=== PATIENT | female | born 1995 | race Caucasian/White ===

== ENCOUNTER → 2017-09-13 08:56 | Outpatient (CLI) | payer OTHER, SELFPAY ==
--- NOTE | 2017-09-13 09:05 | RAD_ITS ---
STUDY: X-RAY - BILATERAL RIBS WITH CHEST REASON FOR EXAM: Female, 21 years old. Back pain. TECHNIQUE - RIBS: 8 view(s) of the ribs. TECHNIQUE - CHEST: Single frontal view of the chest. COMPARISON: None. FINDINGS - RIBS : Normal visualized ribs without a demonstrated fracture. FINDINGS - CHEST: The lungs are clear and expanded. There is no demonstrated pleural abnormality. Normal size heart. Normal mediastinum and elkin. Normal visualized pulmonary arteries. Normal visualized aortic arch and descending thoracic aorta. Normal visualized thoracic spine. Normal visualized ribs, clavicles, and shoulders. There is no demonstrated abnormality of the visualized soft tissue structures of the upper abdomen. RAD/Ribs Lele Min 4V w/PA Chest IMPRESSION: RIBS: Normal x-ray examination of the bilateral ribs. CHEST: Normal x-ray examination of the chest. Electronically Signed: Gómez Garcia MD at 20:56 EDT , Service support ,
== END ==
PROVIDERS: Family Provider Pediatrics; PCP Pediatrics; Visit Provider Orthopaedic Surgery
DX: R07.9 Chest pain, unspecified (principal)
CPT/HCPCS: 71111

== ENCOUNTER → 2017-10-02 12:47 | Outpatient (CLI) | payer OTHER, SELFPAY ==
--- NOTE | 2017-10-02 12:48 | CT_ITS ---
STUDY: CT CHEST WITH CONTRAST REASON FOR EXAM: Female, 21 years old. 6 month history of right sided sternoclavicular pain. RADIATION DOSAGE (If Supplied By Facility): CTDIvol = ( 9.77 ) mGy, DLP = ( 379.22 ) mGycm TECHNIQUE: Transaxial imaging was performed following intravenous administration of 100 ml of Isovue 300 contrast material. Multiplanar coronal and sagittal images were reformatted. Individualized dose optimization techniques were used for this CT. COMPARISON: None. FINDINGS: The lungs are normal. There is no demonstrated pleural abnormality. Normal heart and pericardium. Normal mediastinum. 1.5 cm left hilar lymph node. This is within normal limits. Normal enhanced pulmonary arteries. Normal aorta arch and descending thoracic aorta. Normal osseous structures. There is no demonstrated abnormality of the visualized upper abdomen. CT/Chest WITH Contrast IMPRESSION: Normal enhanced CT Chest examination. Electronically Signed: Paul Jones MD at 13:54 EDT Tel [phone], Service support ,
== END ==
PROVIDERS: Family Provider Pediatrics; PCP Pediatrics; Visit Provider Orthopaedic Surgery
DX: R07.9 Chest pain, unspecified (principal)
CPT/HCPCS: 71260; Q9967

== ENCOUNTER → 2018-03-09 13:12 | Outpatient (CLI) | payer OTHER, SELFPAY ==
--- NOTE | 2018-03-09 13:16 | US_ITS ---
STUDY: ULTRASOUND TRANSVAGINAL CLINICAL: Female, 22 years old. In left lower quadrant TECHNIQUE: Transvaginal COMPARISON: None. FINDINGS: Normal uterine size measuring 7.5 x 4.6 x 3.4 cm in maximal craniocaudal dimension. There are no myometrial masses. The IUD is within the lower uterine segment to the cervix. Normal endometrial thickness measuring 7 mm. There are no endometrial masses, and there is no fluid in the endometrial cavity. A nabothian cyst at the cervix measuring 1.4 x 0.8 x 0.8. Normal right ovary, measuring 3.9 x 2.8 x 2.2 cm. There is a hypoechoic 1.6 x 1.3 cm follicle in the right ovary. There is no visualized portion. Normal left ovary, measuring 3.3 x 2.5 x 2.0 cm. There are multiple follicles without a dominant cyst. There is a small amount of free fluid. Polycystic ovary disease: No. US/Transvaginal Non- IMPRESSION: The IUD is in the lower uterine segment approaching the cervix. This should be repositioned or removed. Small amount of free fluid. Mildly complex right ovarian follicle could consider follow-up ultrasound in one to 2 measures cycles. Electronically Signed: Lupe Sanchez MD at 17:38 EDT Tel , Service support ,
--- NOTE | 2018-03-09 13:16 | US_ITS ---
STUDY: ULTRASOUND TRANSVAGINAL CLINICAL: Female, 22 years old. In left lower quadrant TECHNIQUE: Transvaginal COMPARISON: None. FINDINGS: Normal uterine size measuring 7.5 x 4.6 x 3.4 cm in maximal craniocaudal dimension. There are no myometrial masses. The IUD is within the lower uterine segment to the cervix. Normal endometrial thickness measuring 7 mm. There are no endometrial masses, and there is no fluid in the endometrial cavity. A nabothian cyst at the cervix measuring 1.4 x 0.8 x 0.8. Normal right ovary, measuring 3.9 x 2.8 x 2.2 cm. There is a hypoechoic 1.6 x 1.3 cm follicle in the right ovary. There is no visualized portion. Normal left ovary, measuring 3.3 x 2.5 x 2.0 cm. There are multiple follicles without a dominant cyst. There is a small amount of free fluid. Polycystic ovary disease: No. US/Pelvic (Non ) IMPRESSION: The IUD is in the lower uterine segment approaching the cervix. This should be repositioned or removed. Small amount of free fluid. Mildly complex right ovarian follicle could consider follow-up ultrasound in one to 2 measures cycles. Electronically Signed: Lupe Sanchez MD at 17:38 EDT Tel , Service support ,
== END ==
PROVIDERS: Family Provider Pediatrics; PCP Pediatrics; Visit Provider Nurse Practitioner Women's Health
DX: R10.2 Pelvic and perineal pain (principal)
CPT/HCPCS: 76830; 76856; 93976

== ENCOUNTER → 2019-04-08 11:23 | Outpatient (CLI) | payer OTHER, SELFPAY ==
[2019-04-08 08:21] VITALS: BMI 18.8
[2019-04-08 15:39] LABS: Chlamydia Trachomatis by PCR Negative (Negative); Neisserai gonorrhoeae by PCR Negative (Negative); Probe Check PASS; Sample Adequacy Control PASS; Specimen Processing Control PASS
[2019-04-10 18:13] LABS: HPV Reflexed? NOT INDICATED
== END ==
PROVIDERS: Family Provider Pediatrics; PCP Pediatrics; Referring Provider Nurse Practitioner Women's Health; Visit Provider Nurse Practitioner Women's Health
DX: Z11.3 Encounter for screening for infections with a predominantly sexual mode of transmission (principal); Z12.4 Encounter for screening for malignant neoplasm of cervix
CPT/HCPCS: 87491; 87591; 88175; G0145

== ENCOUNTER → 2020-02-26 07:52 | Outpatient (CLI) | payer OTHER, SELFPAY ==
[2020-02-21 09:03] VITALS: BMI 18.8
--- NOTE | 2020-02-26 07:53 | US_ITS ---
STUDY: ULTRASOUND BREAST - RIGHT REASON FOR EXAM: Female, 24 years old. Palpable lump in the right breast. TECHNIQUE: Axial and longitudinal images of the RIGHT breast were performed with a high resolution ultrasound transducer. # OF IMAGES: 58 COMPARISON: None. FINDINGS: RIGHT Breast: The upper outer region of the right breast was examined by ultrasound. No sonographic abnormality is seen. IMPRESSION: No sonographic abnormality is seen in the upper outer quadrant of the right breast. ASSESSMENT CATEGORY: BIRADS Category 1: Negative. A letter regarding these results will be sent to the patient by the facility within 30 days. Electronically Signed: Paul Jones, at 10:47 EDT , Service support , STUDY: ULTRASOUND BREAST - LEFT REASON FOR EXAM: Female, 24 years old. Palpable lump left breast. TECHNIQUE: Axial and longitudinal images of the LEFT breast were performed with a high resolution ultrasound transducer. # OF IMAGES: 58 COMPARISON: None. FINDINGS: LEFT Breast: The lower outer quadrant of the left breast was examined by ultrasound. No sonographic abnormality is seen. US/Breast Limited Unilateral IMPRESSION: No sonographic abnormality is seen in the lower outer quadrant of the left breast. ASSESSMENT CATEGORY: BIRADS Category 1: Negative. A letter regarding these results will be sent to the patient by the facility within 30 days. Electronically Signed: Paul Jones, at 10:47 EDT , Service support ,
== END ==
PROVIDERS: PCP Pediatrics; Referring Provider Obstetrics & Gynecology; Visit Provider Obstetrics & Gynecology
DX: N63.0 Unspecified lump in unspecified breast (principal)
CPT/HCPCS: 76642

== ENCOUNTER → 2020-11-12 13:53 | Outpatient (CLI) | payer OTHER, SELFPAY ==
[2020-11-05 14:45] VITALS: BMI 18.8
--- NOTE | 2020-11-12 13:56 | US_ITS ---
STUDY: ULTRASOUND OF THE FEMALE PELVIS - COMPLETE REASON FOR EXAM: Female, 24 years old. ov cyst LMP: 10/25/2020 TECHNIQUE: Transabdominal and Transvaginal TECHNICAL QUALITY: Adequate. COMPARISON: None. FINDINGS: The uterus is anteverted and is in a midline position. The uterus measures 8.0 x 4.7 x 3.7 cm. Normal uterine cervix. The endometrium measures 2 mm in thickness, and is hyperechoic. There is no demonstrated endometrial mass. There is no demonstrated myometrial mass. I.U.D. - The patient does not have an I.U.D. The right ovary is visualized. The right ovary measures 3.4 x 4.0 x 2.1 cm. There is no right ovarian cyst or ovarian mass. There is no visualized right adnexal mass or complex lesion. There is normal arterial and normal venous vascularity. The left ovary is visualized. The left ovary measures 3.3 x 2.9 x 2.1 cm. There is no left ovarian cyst or ovarian mass. There is no visualized left adnexal mass or complex lesion. There is normal arterial and normal venous vascularity. There is no fluid in the cul-de-sac. The pre void volume of the bladder was ml. The post void volume of the bladder was ml. Polycystic ovary disease: No. US/Pelvic (Non ) IMPRESSION: Normal female pelvis. Electronically Signed: Ehsan Hood MD at 7:50 EDT Tel , Service support ,
--- NOTE | 2020-11-12 13:56 | US_ITS ---
STUDY: ULTRASOUND OF THE FEMALE PELVIS - COMPLETE REASON FOR EXAM: Female, 24 years old. ov cyst LMP: 10/25/2020 TECHNIQUE: Transabdominal and Transvaginal TECHNICAL QUALITY: Adequate. COMPARISON: None. FINDINGS: The uterus is anteverted and is in a midline position. The uterus measures 8.0 x 4.7 x 3.7 cm. Normal uterine cervix. The endometrium measures 2 mm in thickness, and is hyperechoic. There is no demonstrated endometrial mass. There is no demonstrated myometrial mass. I.U.D. - The patient does not have an I.U.D. The right ovary is visualized. The right ovary measures 3.4 x 4.0 x 2.1 cm. There is no right ovarian cyst or ovarian mass. There is no visualized right adnexal mass or complex lesion. There is normal arterial and normal venous vascularity. The left ovary is visualized. The left ovary measures 3.3 x 2.9 x 2.1 cm. There is no left ovarian cyst or ovarian mass. There is no visualized left adnexal mass or complex lesion. There is normal arterial and normal venous vascularity. There is no fluid in the cul-de-sac. The pre void volume of the bladder was ml. The post void volume of the bladder was ml. Polycystic ovary disease: No. US/Transvaginal Non- IMPRESSION: Normal female pelvis. Electronically Signed: Ehsan Hood MD at 7:50 EDT Tel , Service support ,
== END ==
PROVIDERS: PCP Internal Medicine; Referring Provider Nurse Practitioner Women's Health; Visit Provider Nurse Practitioner Women's Health
DX: N83.202 Unspecified ovarian cyst, left side (principal)
CPT/HCPCS: 76830; 76856

== ENCOUNTER → 2022-09-23 | Outpatient (CLI) | payer OTHER, SELFPAY ==
[2022-09-30 20:12] LABS: HPV Reflexed? NOT INDICATED
== END | disposition home or self-care (01) ==
LOC: LABSPEC 16:39
PROVIDERS: PCP Internal Medicine; Referring Provider Advanced Practice Midwife; Visit Provider Advanced Practice Midwife
DX: Z12.4 Encounter for screening for malignant neoplasm of cervix (principal)
CPT/HCPCS: 88175; G0145

== ENCOUNTER 2023-03-10 15:54 | Emergency (ER) | payer OTHER, SELFPAY ==
[2023-03-10 15:55] VITALS: BP 110/73; PULSE 99; RESP 18; TEMP 36.6; O2SAT 100; BMI 22.1
--- NOTE | 2023-03-10 16:41 | EDS_ITS ---
HPI HPI - Female History of Present Illness Chief Complaint: Vag Bleeding Informant: patient Associated Symptoms P: 0 Narrative Narrative: Patient about 8 weeks, has not had an ultrasound yet but started spotting today, she had some generalized pelvic cramping this morning that is gone, was referred here for evaluation. No other symptoms recently. No problems urinating. No syncope or feeling abnormal at this time. PFSH PFSH Medical History Anxiety Asthma Bilateral headaches GERD (gastroesophageal reflux disease) History of fracture of patella Home Medications NK 09/23/22 [History Last Taken Unknown] Allergy/AdvReac Type Severity Reaction Status Date / Time amoxicillin Allergy Mild Vomiting Verified 03/10/23 15:55 bupropion [From Wellbutrin] Allergy Hives Verified 03/10/23 15:55 Family History Other High blood cholesterol Hypertension Myocardial infarction Surgical History bilateral knee surgery History of wisdom tooth extraction, class II edentulism Social History household members: spouse current occupational status: student 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 Smoking Status: Never smoker alcohol intake: current details: occasionally substance use type: does not use caffeine: Yes what type of physical activity do you participate in: none seatbelt use: always do you feel safe at home: Yes additional social history: - Marco A SANDHU EDSON ED Constitutional Constitutional ED: Denies chills or fever(s) Eyes Eyes: Denies change in vision or diplopia ENT ENT ED: Denies rhinorrhea or sore throat Cardiovascular Cardiovascular: Denies chest pain or palpitations Respiratory/Chest Respiratory/Chest: Denies cough or dyspnea Gastrointestinal Gastrointestinal: Reports abdominal pain; Denies diarrhea, nausea or vomiting Genitourinary Genitourinary ED: Reports as per HPI and vaginal bleeding; Denies dysuria or hematuria Musculoskeletal Musculoskeletal: Denies back pain or neck pain Integumentary Denies abscess or rash Neurologic Neurologic: Denies headache(s), paresthesias or weakness Psychiatric Psychiatric: Denies anxiety or suicidal thoughts EXAM Physical Exam Const Vital Signs: 03/10/23 15:55 Temperature 97.9 F Temperature Source Temporal Pulse Rate 99 Respiratory Rate 18 Blood Pressure 110/73 Blood Pressure Mean 85 Pulse Ox 100 Oxygen Delivery Method Room Air Positive well nourished and well developed Constitutional Narrative: Well-appearing in no distress, pleasant General Appearance ED: well developed and NAD HEENT Reports moist mucous membranes normocephalic and atraumatic Eyes PERRL and EOMs intact bilaterally Neck full ROM and supple Resp normal respiratory effort and clear to auscultation bilaterally Cardio regular rate, regular rhythm and no murmurs Rate: Negative for tachycardic GI non-tender and non-distended Auscultation: normoactive bowel sounds Palpation: soft Speculum Exam - Vagina: vaginal bleeding Back/Spine no CVA tenderness General Back: other FROM Extremity normal to inspection General Extremety ED: Negative for edema, pulses abnormal or tenderness General Extremity: Negative for edema or pulses abnormal Neuro oriented x3, CN's II-XII intact bilaterally and no sensory deficits noted Sensorium / Orientation: awake and alert Motor Exam: strength 5/5 throughout Skin no rashes or lesions noted and no wounds MDM MDM MDM Narrative Medical decision making narrative: Formed a bedside ultrasound. Patient has good double decidua sign, there is a small fetus inside of it, and it does have a detectable heartbeat with rate at 161. The patient's is approximately 65. Reassured, her blood type is a positive, urinalysis shows no infection, at this time she will be discharged with instructions for threatened AB and advised to follow-up with her OB at [place]. We discussed reasons to return. Lab Data Attestation: I reviewed the patient's lab results. Labs: Laboratory Results - last 24 hr 03/10/23 16:43 HCG, Quant [id number] H Urine Color Yellow Urine Clarity Sl. Cloudy Urine pH 6.0 Ur Specific [place] 1.025 Urine Protein 15 H Urine Glucose (UA) Normal Urine Ketones 150 A* Urine Occult Blood 10 H Urine Nitrite Negative Urine Bilirubin Negative Urine Urobilinogen 4 H Ur Leukocyte Esterase 25 H Urine RBC 0-5 SEEN Urine WBC 0-5 SEEN Ur Squamous Epith Cells 0-5 SEEN Amorphous Sediment 1+ URATE Urine Bacteria 0 SEEN Urine Mucus RARE Discharge Plan Triage Chief Complaint: Vag Bleeding ED Provider: Giorgi Mendoza Dx/Rx/DC Orders Clinical Impression: , threatened Instructions: ED Possible Miscarriage ... Prescriptions: No Action NK Primary Care Provider: Concha Faulkner Referrals: Concha Faulkner MD [Primary Care Provider] - Concepcion Oleary MD [Med Staff - Active Staff] - As soon as possible Disposition Disposition: Home, Self Care
[2023-03-10 16:49] LABS: Bacteria 0 SEEN /hpf (None Seen)
[2023-03-10 16:52] LABS: Color, Urine Yellow (Yellow); Glucose, Dipstick Normal (Normal); Leukocyte Esterase-Dipstick 25 /ul (Negative); Nitrite-Dipstick Negative (Negative); Occult Blood-Urine 10 /ul (Negative); Protein-Dipstick 15 mg/dl (Negative); Specific Gravity, Urine 1.025 (1.002-1.030); Urine Bilirubin Dipstick Negative (Negative); Urine Clarity Sl. Cloudy (Clear); Urine Urobilinogen 4 mg/dl (Normal)
[2023-03-10 16:56] LABS: Ketone-Dipstick 150 mg/dl (Negative)
[2023-03-10 17:02] LABS: Amorphous Sediment 1+ URATE; Mucous, Urine RARE /hpf (<or=2+); Red Blood Cells-Urine 0-5 SEEN /hpf (0-5); Squamous Epithelial Cells - UA 0-5 SEEN /hpf (5-10); White Blood Cells 0-5 SEEN /hpf (0-5)
== END 2023-03-10 18:41 | disposition home or self-care (01) ==
PROVIDERS: Emergency Provider Emergency Medicine; PCP Internal Medicine; Visit Provider Emergency Medicine
DX: O20.0 Threatened abortion (principal); Z3A.08 8 weeks gestation of pregnancy
CPT/HCPCS: 81001; 84702; 86900; 86901; 99284; A4216

== ENCOUNTER → 2023-03-15 | Outpatient (CLI) | payer OTHER, SELFPAY ==
[2023-03-18 14:16] LABS: Chlamydia By Nucleic Acid AMP Negative (Negative); Gonococcus By Nucleic Acid AMP Negative (Negative)
== END | disposition home or self-care (01) ==
PROVIDERS: PCP Internal Medicine; Visit Provider Registered Nurse
DX: Z34.90 Encounter for supervision of normal pregnancy, unspecified, unspecified trimester (principal); Z3A.00 Weeks of gestation of pregnancy not specified
CPT/HCPCS: 87086; 87491; 87591

== ENCOUNTER → 2023-03-27 | Outpatient (CLI) | payer OTHER, SELFPAY ==
[2023-03-27 17:15] LABS: Absolute Lymphocyte Count 2.88 X10^3/uL (0.83-4.51); Absolute Neutrophil Count 7.2 X10^3/uL (2.0-7.7); Basophil# 0.03 X10^3/uL; Basophil% 0.3 % (0-1); Eosinophil# 0.16 X10^3/uL; Eosinophils% 1.5 % (0-5); Hemoglobin 12.4 g/dL (12.0-15.0); Lymphocyte # 2.88 X10^3/ul (0.83-4.51); Lymphocyte % 26.3 % (19-41); Mean Corp Hgb Conc 33.5 g/dL (32-36); Mean Corpuscular Hgb 31.8 pg (27.0-32.0); Mean Corpuscular Volume 94.9 fL (81-99); Mean Platelet Vol. 10.1 fl (6.2-12.0); Monocyte# 0.63 X10^3/uL; Monocyte% 5.7 % (0-10); NRBC Flagged by Analyzer 0 % (0-5); Neutrophil # 7.22 X10^3/uL (2.7-7.7); Neutrophil % 65.8 % (47-70); Platelet Count 355 K/mm3 (150-450); RBC Distribution Width CV 10.9 % (11.6-14.6)
[2023-03-27 17:38] LABS: NATERA MAILED SPECIMEN
[2023-03-27 18:18] LABS: HIV - WCH Non-Reactive (Nonreactive); Hepatitis B Surface Antigen Non-Reactive (Nonreactive); Hepatitis C Antibody Non-Reactive (Nonreactive); Rubella IgG Reactive (Nonreactive); Syphilis Antibodies Non-reactive
== END | disposition home or self-care (01) ==
LOC: LAB 16:35
PROVIDERS: PCP Internal Medicine; Referring Provider Registered Nurse; Visit Provider Registered Nurse
DX: Z34.90 Encounter for supervision of normal pregnancy, unspecified, unspecified trimester (principal); Z3A.00 Weeks of gestation of pregnancy not specified
CPT/HCPCS: 36415; 85025; 86703; 86762; 86780; 86803; 86850; 86900; 86901; 87340

== ENCOUNTER 2023-04-17 09:46 | Outpatient (CLI) | payer OTHER, SELFPAY ==
[2023-04-17 10:01] VITALS: BP 134/74; PULSE 101; RESP 16; TEMP 36.1; O2SAT 99
[2023-04-17] MEDS: 0.9% NaCl Peripheral Flush Adult/Peds IV (10:16)
[2023-04-17] MEDS: Dextrose 5%-Lactated Ringers 1,000 ML 999 ML IV (10:16)
[2023-04-17] MEDS: Ondansetron 4 MG/2 ML Vial IV (10:16)
[2023-04-17] MEDS: proMETHazine 25 MG/ML Syringe 12.5 MG IM (11:32)
[2023-04-17 11:38] VITALS: BP 121/69; PULSE 97; RESP 16
== END 2023-04-17 09:47 | disposition home or self-care (01) ==
LOC: MEDOUTP 09:47
PROVIDERS: PCP Internal Medicine; Referring Provider Nurse Practitioner Women's Health; Visit Provider Nurse Practitioner Women's Health
DX: E86.0 Dehydration (principal)
CPT/HCPCS: 96365; 96375; 96372; A4216; J2405

== ENCOUNTER → 2023-05-10 | Outpatient (CLI) | payer OTHER, SELFPAY | END | disposition home or self-care (01) | LOC: LAB 11:52 | PROVIDERS: PCP Internal Medicine; Visit Provider Advanced Practice Midwife | DX: Z34.90 Encounter for supervision of normal pregnancy, unspecified, unspecified trimester (principal); Z3A.00 Weeks of gestation of pregnancy not specified ==

== ENCOUNTER 2023-05-21 09:16 | Emergency (ER) | payer OTHER, SELFPAY ==
[2023-05-21 09:17] VITALS: BP 118/75; PULSE 101; RESP 18; TEMP 36.4; O2SAT 96
--- NOTE | 2023-05-21 10:18 | US_ITS ---
INDICATION: Vaginal Bleeding EXAMINATION: Limited OB ultrasound TECHNIQUE: Transabdominal pelvic ultrasound was performed. COMPARISON: No relevant prior comparison study available LMP: 01/13/2023 Beta-hCG: Unknown. Provided EGA: None. FINDINGS: INTRAUTERINE GESTATION(s): Single. HEART MOTION is 150 bpm. AMNIOTIC FLUID INDEX (TOYIN): Within normal limits but not measured, the largest pocket measures 4.2 cm. PRESENTATION: Cephalic PLACENTA: Anterior. There is no placenta previa or abruption. CERVIX: The cervix is closed measuring about 4.7 cm in length. MATERNAL OVARIES: No adnexal masses. FREE FLUID: None. US/OB Limited (No Biometrics) IMPRESSION: 1. Single live intrauterine in cephalic presentation. 2. Anterior placenta without evidence of previa. 3. The TOYIN is within normal limits. 4. Closed cervix measuring 4.7 cm in length. Electronically Signed: Morris Bruno MD at 12:13 EST ,
--- NOTE | 2023-05-21 10:20 | ED.VIS.FEGU ---
HPI HPI - Female History of Present Illness Chief Complaint: Vag Bld, Preg Narrative Narrative: 27-year-old female, G1, P0 at approximately 18 weeks gestation presents with vaginal bleeding that started today. She relates history that is 7 or 8 weeks gestation, she had mild spotting. She follows up with [facility]. This morning, she had just awoken and gone to the bathroom and had a large gush of blood. She states that it was almost similar to her normal periods. She had to wipe several times to remove any remaining blood. She was passing large clots as well. She had lower abdominal cramping which seems to have resolved. She believes her blood type is a positive. She presents with vaginal bleeding during the second trimester of her first gestation. PFSH PFSH Medical History Anxiety Asthma Bilateral headaches GERD (gastroesophageal reflux disease) History of fracture of patella Home Medications vit,calcium no.40-iron fum 27 mg iron-folate no.1 1 mg tablet (PNV-Select) 1 tab PO .q8hr PRN nausea 03/15/23 [History Last Taken Unknown] ondansetron 4 mg disintegrating tablet 4 mg PO Q4H PRN nausea and vomiting #60 tabs 04/17/23 [Rx Last Taken Unknown] Allergy/AdvReac Type Severity Reaction Status Date / Time amoxicillin Allergy Mild Vomiting Verified 05/21/23 09:17 bupropion [From Wellbutrin] Allergy Hives Verified 05/21/23 09:17 Family History Other High blood cholesterol Hypertension Myocardial infarction Surgical History bilateral knee surgery History of wisdom tooth extraction, class II edentulism Social History household members: spouse housing: house current occupational status: student current occupation: Physical Therapist pets and animals: Yes (1 cat - not managing litter box) history of recent travel: No sexually active: Yes Smoking Status: Never smoker alcohol intake: current details: occasionally - not while substance use type: does not use caffeine: Yes what type of physical activity do you participate in: none seatbelt use: always do you feel safe at home: Yes additional social history: - Marco A SANDHU ROS ED ROS Narrative Constitutional: No fever, no chills. HEENT: No sore throat. No neck pain. No loss of vision. No rhinorrhea. Cardiovascular: No chest pain. No palpitations. No pedal edema. Respiratory: No cough, no shortness of breath. Abdominal: No abdominal pain. No nausea. No vomiting. Genitourinary: No dysuria. No hematuria. Vaginal bleeding with , similar to previous menses. Musculoskeletal: No myalgias. No arthralgias. Neurologic: No headaches. No dizziness. No lightheadedness. Skin: No rash. No change in color. Psychiatric: No depression. No anxiety. EXAM Physical Exam Narrative Exam Narrative: Afebrile. Vital signs noted. HEENT: Normocephalic. Atraumatic. PERRL, EOMI. Neck soft and supple. No point tenderness or step off. Cardiovascular: Regular rate and rhythm. No murmurs, rubs, or gallops appreciated. Respiratory: No tachypnea. Lungs clear to auscultation bilaterally. Gastrointestinal: Abdomen soft, nontender, with normoactive bowel sounds. No rebound or guarding. Neurological: Awake. Alert. Nonfocal, nonlateralizing. Skin: No rash. Normal color. No pallor. Musculoskeletal: No pedal edema. Full range of motion extremities. Const Vital Signs: 05/21/23 09:17 Temperature 97.6 F L Temperature Source Temporal Pulse Rate 101 H Respiratory Rate 18 Blood Pressure 118/75 Blood Pressure Mean 89 Pulse Ox 96 Oxygen Delivery Method Room Air MDM MDM MDM Narrative Medical decision making narrative: With her vaginal bleeding at 18 weeks gestation, concern is for threatened /miscarriage versus subchorionic hemorrhage. We will perform a pelvic examination. Transabdominal ultrasound will be performed. I reviewed her prior records and she did have spotting at approximately 7 to 8 weeks. I will obtain a CBC and a CMP along with an ABO Rh. Her blood type is a positive, I reviewed her CBC and CMP as well and she has a normal white count of 9.5, hemoglobin stable 11.7, hematocrit 35.2, platelet count normal at 328. CMP is remarkable for chloride of 109 which I think is nonspecific, AST normal at 22 with ALT normal at 43, glucose appropriately elevated at 87 with a normal anion gap of 5. Urinalysis is negative for infection or blood with 0 RBCs and no occult blood. I do not feel antibiotics are indicated. I reviewed the radiology report which shows single live intrauterine with heart rate of 150 bpm. There is no evidence of placenta previa or subchorionic hemorrhage. I am unsure as to the cause of her reported bleeding. Chaperoned pelvic examination was also performed but we did not have a smaller speculum. Bimanual examination revealed cervix os to be closed and no gross blood on examination. No adnexal tenderness. At this point in time, I am unsure as to the cause of her reported bleeding but she does not have active hemorrhage. As she has had a threatened miscarriage, I discussed the patient with the nurse supervisor intermediates, Richa Cazares, who agrees with outpatient follow-up. Patient is to return to the emergency department with increased bleeding, pain, new or worsening symptoms, but call tomorrow for an appointment to be seen sometime in the upcoming week. Disposition is discharged home in stable condition. History & Record Review Discussion w/independent historian: Patient Additional record(s) reviewed:: Prior ED visit and Prior labs Lab Data Attestation: I reviewed the patient's lab results. Labs: Laboratory Results - last 24 hr 05/21/23 05/21/23 05/21/23 09:45 10:30 12:48 WBC 9.5 RBC 3.69 L Hgb 11.7 L Hct 35.2 L MCV 95.4 MCH 31.7 MCHC 33.2 RDW Std Deviation 44.5 H RDW Coeff of Abbie 12.8 Plt Count 328 MPV 9.9 Immature Gran % (Auto) 0.200 Neut % (Auto) 72.1 H Lymph % (Auto) 19.8 [place] % (Auto) 4.1 Eos % (Auto) 3.5 Baso % (Auto) 0.3 Absolute Neuts (auto) 6.8 Absolute Lymphs (auto) 1.87 Nucleated RBC % 0 Sodium 139 Potassium 3.8 Chloride 109 H Carbon Dioxide 25.0 Anion Gap 5 BUN 6 L Creatinine 0.55 Est GFR (MDRD) Af Amer 172 Est GFR (MDRD) Non-Af 142 BUN/Creatinine Ratio 10.9 Glucose 87 Calcium 8.8 Total Bilirubin 0.50 AST 22 ALT 43 Alkaline Phosphatase 64 Total Protein 6.6 Albumin 2.9 L Globulin 3.7 Albumin/Globulin Ratio 0.8 L Urine Color Yellow Urine Clarity Clear Urine pH 8.0 Ur Specific [place] 1.015 Urine Protein Negative Urine Glucose (UA) Normal Urine Ketones 5 H Urine Occult Blood Negative Urine Nitrite Negative Urine Bilirubin Negative Urine Urobilinogen Normal Ur Leukocyte Esterase 100 H Urine RBC 0 SEEN Urine WBC 0-5 SEEN Ur Squamous Epith Cells 0 SEEN Urine Bacteria 1+ Urine Mucus 0 SEEN Blood Type A POSITIVE Radiography Diagnostic Testing: Clinical Impression(s) from Imaging Studies Obstetrics Ultrasound 05/21/23 10:18 IMPRESSION: 1. Single live intrauterine in cephalic presentation. 2. Anterior placenta without evidence of previa. 3. The TOYIN is within normal limits. 4. Closed cervix measuring 4.7 cm in length. Electronically Signed: Morris Bruno MD at 12:13 EST , Discharge Plan Triage Chief Complaint: Vag Bld, Preg ED Provider: Emory Lawrence Dx/Rx/DC Orders Clinical Impression: Threatened miscarriage, Second trimester bleeding Instructions: ED Possible Miscarriage ... Prescriptions: No Action PNV-Select 27-1 mg tablet 1 tab PO .q8hr PRN (Reason: nausea) ondansetron 4 mg tablet,disintegrating 4 mg PO Q4H PRN (Reason: nausea and vomiting) Qty: 60 2RF Primary Care Provider: Concha Faulkner Referrals: Concha Faulkner MD [Primary Care Provider] - Concepcion Oleary MD [Med Staff - Active Staff] - 3-5 Days Activity Restrictions/Additional Instructions: Return with increased bleeding, pain, new or worsening symptoms. Otherwise, follow-up with the [facility] this week. Call the office tomorrow for an appointment. Disposition Disposition: Home, Self Care
[2023-05-21 10:28] LABS: Absolute Lymphocyte Count 1.87 X10^3/uL (0.83-4.51); Absolute Neutrophil Count 6.8 X10^3/uL (2.0-7.7); Basophil# 0.03 X10^3/uL; Basophil% 0.3 % (0-1); Eosinophil# 0.33 X10^3/uL; Eosinophils% 3.5 % (0-5); Hematocrit 35.2 % (37-47); Hemoglobin 11.7 g/dL (12.0-15.0); Lymphocyte # 1.87 X10^3/ul (0.83-4.51); Lymphocyte % 19.8 % (19-41); Mean Corp Hgb Conc 33.2 g/dL (32-36); Mean Corpuscular Hgb 31.7 pg (27.0-32.0); Mean Corpuscular Volume 95.4 fL (81-99); Mean Platelet Vol. 9.9 fl (6.2-12.0); Monocyte# 0.39 X10^3/uL; Monocyte% 4.1 % (0-10); NRBC Flagged by Analyzer 0 % (0-5); Neutrophil # 6.82 X10^3/uL (2.7-7.7); Neutrophil % 72.1 % (47-70); Platelet Count 328 K/mm3 (150-450); RBC Distribution Width CV 12.8 % (11.6-14.6); RBC Distribution Width SD 44.5 fl (35.1-43.9); Red Blood Count 3.69 M/mm3 (4.2-5.4); White Blood Count 9.5 K/mm3 (4.4-11.0)
[2023-05-21 10:44] LABS: ALB/GLOB Ratio 0.8 RATIO (0.9-2.4); AST(SGOT) 22 U/L (15-37); Alanine Aminotransfer ALT/SGPT 43 U/L (13-56); Albumin, Serum 2.9 g/dL (3.2-5.0); Alkaline Phosphatase 64 U/L (45-117); Anion Gap 5 (5-15); BUN 6 mg/dL (7-18); BUN/Creat Ratio 10.9 RATIO (10-20); Calcium,Total 8.8 mg/dL (8.5-10.1); Chloride 109 mmol/L (98-107); Creatinine, Serum 0.55 mg/dL (0.55-1.02); EST Glomerular Filtration Rate 142 mL/min (>60); Est Glom Filt Rate - Afr Amer 172 mL/min (>60); Globulin 3.7 g/dL (2.2-4.2); Glucose 87 mg/dL (74-106); Potassium 3.8 mmol/L (3.5-5.1); Protein, Total 6.6 g/dL (6.4-8.2); Sodium Level 139 mmol/L (136-145)
[2023-05-21 12:54] LABS: Mucous, Urine 0 SEEN /hpf (<or=2+); Red Blood Cells-Urine 0 SEEN /hpf (0-5); Squamous Epithelial Cells - UA 0 SEEN /hpf (5-10)
[2023-05-21 12:59] LABS: Color, Urine Yellow (Yellow); Glucose, Dipstick Normal (Normal); Ketone-Dipstick 5 mg/dl (Negative); Leukocyte Esterase-Dipstick 100 /ul (Negative); Nitrite-Dipstick Negative (Negative); Occult Blood-Urine Negative /ul (Negative); Protein-Dipstick Negative (Negative); Specific Gravity, Urine 1.015 (1.002-1.030); Urine Bilirubin Dipstick Negative (Negative); Urine Clarity Clear (Clear); Urine Urobilinogen Normal (Normal)
[2023-05-21 13:36] LABS: Bacteria 1+ /hpf (None Seen); White Blood Cells 0-5 SEEN /hpf (0-5)
[2023-05-21 14:11] VITALS: BP 122/64; PULSE 72; RESP 18; O2SAT 100
== END 2023-05-21 14:12 | disposition home or self-care (01) ==
PROVIDERS: Emergency Provider Emergency Medicine; PCP Internal Medicine; Visit Provider Emergency Medicine
DX: O20.0 Threatened abortion (principal); Z3A.18 18 weeks gestation of pregnancy
CPT/HCPCS: 76815; 80053; 81001; 85025; 86900; 86901; 99283; A4216

== ENCOUNTER → 2023-06-14 | Outpatient (CLI) | payer OTHER, SELFPAY | END | disposition home or self-care (01) | PROVIDERS: PCP Internal Medicine; Referring Provider Nurse Practitioner Women's Health; Visit Provider Nurse Practitioner Women's Health | DX: Z34.90 Encounter for supervision of normal pregnancy, unspecified, unspecified trimester (principal); Z3A.00 Weeks of gestation of pregnancy not specified | CPT/HCPCS: 36415 ==

== ENCOUNTER → 2023-08-07 | Outpatient (CLI) | payer OTHER, SELFPAY ==
--- OUTSIDE RECORDS SUMMARY | 2023-08-07 12:43 | XMS RPT_ITS | CCD ---
Author Name Unknown Address [address] [place] [address] Organization [facility] Care Team Providers Care Finishing Machine Tender Name Role Phone Concepcion Oleary MD Unavailable [phone] YURI CANSECO Referring Unavailable DEORAS, MORIAH S Primary Care Unavailable DEORAS, MORIAH S Referring Unavailable YURI CANSECO Referring Unavailable DEORAS, MORIAH S Primary Care Unavailable DEORAS, MORIAH S Referring Unavailable DEORAS, MORIAH S Primary Care Unavailable YURI CANSECO Referring Unavailable DEORAS, MORIAH S Primary Care Unavailable DEORAS, MORIAH S Referring Unavailable DEORAS, MORIAH S Primary Care Unavailable IMCA Referring Unavailable DEORAS, MORIAH S Primary Care Unavailable YURI CANSECO Referring Unavailable UNKNOWN, PROVIDER Attending Unavailable NONE Primary Care Unavailable Deoras, Moriah Jack Unavailable [phone] Raffi Faulkner MD Primary Care Provider Deoras, Moriah Jack Unavailable Raffi Faulkner MD Primary Care Provider OMER RAFFI D Primary Care Unavailable VERDUGO, MARIALUISA Referring Unavailable TALAMPAS, RAFFI D Primary Care Unavailable BRIAN MCDONALD Attending Unavailable TALAMPAS, RAFFI D Primary Care Unavailable TALAMPAS, RAFFI D Primary Care Unavailable VERDUGO, MARIALUISA Attending Unavailable OMER, RAFFI D Primary Care Unavailable OMER, RAFFI D Primary Care Unavailable MARIALUISA VERDUGO Attending Unavailable NO PRIMARY CAREMD Primary Care Unavailable MARCANTHONY, CONCEPCIONRO Luu Attending Unavailable Allergies Allergy Classification Reported Allergen(s) Allergy Type Date of Onset Reaction(s) Facility (1 source) buPROPion drug allergy 7 [facility] (14 sources) buPROPion; Translations: [BUPROPION HCL] Drug Allergy 6 Vomiting, Other: See Comments [facility] Repository (5 sources) Penicillins; Translations: [PENICILLINS] Drug Intolerance 3 Intolerance [facility] Work Phone: (4 sources) Amoxicillin; Translations: [AMOXICILLIN] Drug Allergy 3 Diarrhea, Vomiting [facility] (1 source) buPROPion; Translations: [BUPROPION] Drug Allergy 6 [facility] Repository Medications Current Medications Medication Drug Class(es) Dates Sig (Normalized) Sig (Original) amoxicillin 500 mg oral capsule (1 source) Penicillin-class Antibacterial Start: 08-26-2022 End: 08-26-2022 take 2 capsules by mouth three times daily at mealtime amoxicillin (AMOXIL) 500 mg capsule Indications: Acute cough , Rib pain on left side Take 2 capsules by mouth three times daily for 10 days. Take with food 60 capsule 0 08/26/2022 08/26/2022 Discontinued (Side Effects) Completed/Discontinued Medications Medication Drug Class(es) Dates Sig (Normalized) Sig (Original) acetaminophen 325 mg oral tablet (1 source) Start: 02-22-2010 TYLENOL 325 MG TABS as needed ACETAMINOPHEN [id number] Scottie Nunez MS,PA-C [id number] 200 actuat albuterol 0.09 mg/actuat metered dose inhaler (6 sources) beta2-Adrenergic Agonist Start: 11-27-2020 take 2 puff(s) by inhalation every four hours as needed for wheezing albuterol HFA (PROAIR HFA) 90 mcg/actuation inhaler Inhale 2 Puffs as instructed every 4 hours as needed for wheezing/shortness of breath. 6.7 g 2 11/27/2020 Active Problems Active Problems Problem Classification Problem Date Documented Date Episodic/Chronic Asthma (3 sources) Mild intermittent asthma; Translations: [Mild intermittent asthma with (acute) exacerbation] Onset: 09-02-2022 Chronic Cardiac dysrhythmias (1 source) Palpitations; Translations: [Palpitations] Episodic Esophageal disorders (1 source) Gastroesophageal reflux disease; Translations: [Gastro-esophageal reflux disease without esophagitis] Chronic External cause codes: Natural/environment (1 source) Exposure to other specified factors, initial encounter; Translations: [EXPOSURE TO OTHER SPECIFIED FACTORS, INITIAL ENCOUNTER] Onset: 10-11-2018 Menstrual disorders (6 sources) Irregular periods; Translations: [Irregular menstruation, unspecified] Onset: 12-05-2013 12-05-2013 Chronic Nausea and vomiting (1 source) Nausea Onset: 06-01-2018 Episodic Other lower respiratory disease (2 sources) Cough; Translations: [COUGH] Onset: 10-11-2018 Episodic Other lower respiratory disease (1 source) Rib pain; Translations: [Pleurodynia] Episodic Other lower respiratory disease (2 sources) Persistent cough; Translations: [Persistent cough for 3 weeks or longer] Episodic Other upper respiratory disease (1 source) Nasal discharge; Translations: [Other specified disorders of nose and nasal sinuses] Episodic Other upper respiratory infections (20 sources) Upper respiratory infection; Translations: [Acute pharyngitis] Onset: 02-22-2010 Resolved: 03-08-2010 02-22-2010 Episodic Sprains and strains (1 source) Strain of muscle and tendon of back wall of thorax, initial encounter; Translations: [STRAIN OF MUSCLE AND TENDON OF BACK WALL OF THORAX, INIT] Onset: 10-11-2018 Episodic Unclassified (1 source) Gynecologic examination ; Translations: [Encounter for gynecological examination (general) (routine) with abnormal findings] Onset: 02-06-2017 02-06-2017 Unclassified (2 sources) THORACIC STRAIN Onset: 10-11-2018 Unclassified (1 source) Persistent cough for 3 weeks or longer; Translations: [Persistent cough for 3 weeks or longer] Onset: 07-20-2016 Unclassified (1 source) Acute cough; Translations: [Acute cough] Onset: 07-20-2016 Viral infection (1 source) Viral disease; Translations: [Viral infection, unspecified] Episodic Past or Other Problems Problem Classification Problem Date Documented Da te Episodic/Chronic Acute bronchitis (6 sources) Acute bronchitis; Translations: [Acute bronchitis, unspecified] Onset: 02-29-2016 02-29-2016 Episodic Headache; including migraine (6 sources) Chronic daily headache; Translations: [Chronic daily headache] Onset: 04-17-2014 04-17-2014 Episodic Nonmalignant breast conditions (1 source) Pain of breast; Translations: [Mastodynia] Onset: 02-06-2017 02-06-2017 Episodic Other circulatory disease (6 sources) Pulmonary congestion ; Translations: [Other specified symptoms and signs involving the circulatory and respiratory systems] Onset: 07-20-2016 07-20-2016 Episodic Other lower respiratory disease (1 source) Anterior chest wall pain; Translations: [Other chest pain] Onset: 02-22-2010 02-22-2010 Episodic Other lower respiratory disease (7 sources) Cough; Translations: [Cough] Onset: 07-20-2016 07-20-2016 Episodic Other lower respiratory disease (1 source) Pleurodynia; Translations: [Rib pain on left side] Onset: 08-26-2022 Episodic Other skin disorders (6 sources) Acne; Translations: [Acne, unspecified] Onset: 12-05-2013 12-05-2013 Episodic Otitis media and related conditions (6 sources) Acute serous otitis media of bilateral ears; Translations: [Acute serous otitis media, bilateral] Onset: 07-20-2016 07-20-2016 Episodic Unclassified (1 source) Family history of asthma; Translations: [Family history of asthma and other chronic lower respiratory diseases] 02-22-2010 Episodic Results Test Name Value Interpretation Reference Range Facil ity Vital Signs Date Time Vital Sign Value Performing Clinician Faci lity 04-12-2023 18:32-0400 Body temperature 98.49 [degF] Alex Martinsno PA-C Work Phone: [facility] 04-12-2023 18:32-0400 Body weight 65.32 kg Alex Martinsno PA-C Work Phone: [facility] 04-12-2023 18:32-0400 Diastolic blood pressure 76 mm[Hg] Alex Martinsno PA-C Work Phone: [facility] 04-12-2023 18:32-0400 Heart rate 105 /min Alex Martinsno PA-C Work Phone: [facility] 04-12-2023 18:32-0400 SaO2% (BldA) [Mass fraction] 100 % Alex Martinsno PA-C Work Phone: [facility] 04-12-2023 18:32-0400 Systolic blood pressure 111 mm[Hg] Alex Martinsno PA-C Work Phone: [facility] 09-02-2022 15:32-0400 Body weight 67.68 kg Brian Tamara INTERVENTIONAL CARDIOLOGIST.FRONT SIGHT ATTACHER Work Phone: [facility] 09-02-2022 15:32-0400 Diastolic blood pressure 74 mm[Hg] Brian Tamara INTERVENTIONAL CARDIOLOGIST.FRONT SIGHT ATTACHER Work Phone: [facility] 09-02-2022 15:32-0400 Heart rate 77 /min Brian Tamara INTERVENTIONAL CARDIOLOGIST.FRONT SIGHT ATTACHER Work Phone: [facility] 09-02-2022 15:32-0400 Respiratory rate 16 /min Brian Tamara INTERVENTIONAL CARDIOLOGIST.FRONT SIGHT ATTACHER Work Phone: [facility] 09-02-2022 15:32-0400 SaO2% (BldA) [Mass fraction] 96 % Brian Tamara INTERVENTIONAL CARDIOLOGIST.FRONT SIGHT ATTACHER Work Phone: [facility] 09-02-2022 15:32-0400 Systolic blood pressure 104 mm[Hg] Brian Tamara INTERVENTIONAL CARDIOLOGIST.FRONT SIGHT ATTACHER Work Phone: [facility] 08-26-2022 07:28-0500 Body temperature 97.9 [degF] Marialuisa Verdugo INTERVENTIONAL CARDIOLOGIST.PRODUCT MARKETING EXECUTIVE Work Phone: [facility] 08-26-2022 07:28-0500 Body weight 68.04 kg Marialuisa Verdugo INTERVENTIONAL CARDIOLOGIST.PRODUCT MARKETING EXECUTIVE Work Phone: [facility] 08-26-2022 07:28-0500 Diastolic blood pressure 80 mm[Hg] Marialuisa Verdugo INTERVENTIONAL CARDIOLOGIST.PRODUCT MARKETING EXECUTIVE Work Phone: [facility] 08-26-2022 07:28-0500 Heart rate 83 /min Marialuisa Verdugo INTERVENTIONAL CARDIOLOGIST.PRODUCT MARKETING EXECUTIVE Work Phone: [facility] 08-26-2022 07:28-0500 Respiratory rate 16 /min Marialuisa Verdugo INTERVENTIONAL CARDIOLOGIST.PRODUCT MARKETING EXECUTIVE Work Phone: [facility] 08-26-2022 07:28-0500 SaO2% (BldA) [Mass fraction] 100 % Marialuisa Verdugo INTERVENTIONAL CARDIOLOGIST.PRODUCT MARKETING EXECUTIVE Work Phone: [facility] 08-26-2022 07:28-0500 Systolic blood pressure 110 mm[Hg] Marialuisa Verdugo INTERVENTIONAL CARDIOLOGIST.PRODUCT MARKETING EXECUTIVE Work Phone: [facility] 08-02-2022 18:14-0500 Body temperature 98.01 [degF] Omar James INTERVENTIONAL CARDIOLOGIST.FRONT SIGHT ATTACHER Work Phone: [facility] 08-02-2022 18:14-0500 Body weight 68.95 kg Omar Ramirez INTERVENTIONAL CARDIOLOGIST.FRONT SIGHT ATTACHER Work Phone: [facility] 08-02-2022 18:14-0500 Diastolic blood pressure 82 mm[Hg] Omar James INTERVENTIONAL CARDIOLOGIST.FRONT SIGHT ATTACHER Work Phone: [facility] 08-02-2022 18:14-0500 Heart rate 94 /min Omar James INTERVENTIONAL CARDIOLOGIST.FRONT SIGHT ATTACHER Work Phone: [facility] 08-02-2022 18:14-0500 Respiratory rate 18 /min Omar James INTERVENTIONAL CARDIOLOGIST.FRONT SIGHT ATTACHER Work Phone: [facility] 08-02-2022 18:14-0500 SaO2% (BldA) [Mass fraction] 98 % Omar James INTERVENTIONAL CARDIOLOGIST.FRONT SIGHT ATTACHER Work Phone: [facility] 08-02-2022 18:14-0500 Systolic blood pressure 128 mm[Hg] Omar James INTERVENTIONAL CARDIOLOGIST.FRONT SIGHT ATTACHER Work Phone: [facility] 12-10-2021 14:09-0400 Body weight 63.5 kg Marialuisa Verdugo INTERVENTIONAL CARDIOLOGIST.PRODUCT MARKETING EXECUTIVE Work Phone: [facility] 12-10-2021 14:09-0400 Diastolic blood pressure 68 mm[Hg] Marialuisa Verdugo INTERVENTIONAL CARDIOLOGIST.PRODUCT MARKETING EXECUTIVE Work Phone: [facility] 12-10-2021 14:09-0400 Heart rate 98 /min Marialuisa Verdugo INTERVENTIONAL CARDIOLOGIST.PRODUCT MARKETING EXECUTIVE Work Phone: [facility] 12-10-2021 14:09-0400 Respiratory rate 16 /min Marialuisa Verdugo INTERVENTIONAL CARDIOLOGIST.PRODUCT MARKETING EXECUTIVE Work Phone: [facility] 12-10-2021 14:09-0400 SaO2% (BldA) [Mass fraction] 100 % Marialuisa Verdugo INTERVENTIONAL CARDIOLOGIST.PRODUCT MARKETING EXECUTIVE Work Phone: [facility] 12-10-2021 14:09-0400 Systolic blood pressure 110 mm[Hg] Marialuisa Verdugo INTERVENTIONAL CARDIOLOGIST.PRODUCT MARKETING EXECUTIVE Work Phone: [facility] 02-06-2017 15:43-0400 BMI (Body Mass Index) 21.32 kg/m2 Concepcion Oleary MD [facility] 02-06-2017 15:43-0400 Body Temperature 98.4 [degF] Concepcion Oleary MD [facility] 02-06-2017 15:43-0400 BP Diastolic 70 mm[Hg] Concepcion Oleary MD [facility] 02-06-2017 15:43-0400 BP Systolic 111 mm[Hg] Concepcion Oleary MD [facility] 02-06-2017 15:43-0400 Height 175.26 cm Concepcion Oleary MD [facility] 02-06-2017 15:43-0400 Pulse (Heart Rate) 108 /min Concepcion Oleary MD [facility] 02-06-2017 15:43-0400 Respiratory Rate 16 /min Concepcion Oleary MD [facility] 02-06-2017 15:43-0400 Weight 65.5 kg Concepcion Oleary MD [facility] 02-22-2010 13:29-0400 BSA (Body Surface Area) 1.54 m2 Concepcion Oleary MD [facility] Encounters Encounter Date Encounter Type Care Provider Facility Start: 06-01-2023 End: 06-01-2023 ambulatory [facility] Start: 04-12-2023 End: 04-12-2023 ambulatory RAFFI FAULKNER Facility:[facility] Start: 04-12-2023 End: 04-12-2023 Patient encounter procedure Alex Florentino PA-C Work Phone: [facility] Procedures Date Procedure Procedure Detail Performing Clinician Start: 04-12-2023 STREP A MOLECULAR (POC) [facility] Provider Start: 12-10-2021 Ecg routine ecg w/le ast 12 lds w/i&r [facility] Provider Start: 12-10-2021 Adult depression screening assessment Marialuisa Verdugo APRN.PRODUCT MARKETING EXECUTIVE Work Phone: Start: 10-25-2020 Antibody screen Plan of Treatment Date Care Activity Detail Author Start: 12-10-2029 Urine microalbumin profile [facility] Start: 09-23-2025 PAP TESTING PAP TESTING [facility] Start: 02-17-2023 Influenza vaccination INFLUENZ A (Season Ended) [facility] Start: 12-10-2022 Adult depression screening assessment DEPRESSION SCREENING [facility] Start: 08-02-2022 End: 08-16-2022 Influenza virus A and B RNA and SARS-CoV-2 (COVID-19) N gene panel - Respiratory specimen by MITCHELL with probe detection [facility] Work Phone: Immunizations Immunization Date Immunization Notes Care Provider Fa cility 03-31-2023 COVID-19 vaccine, ag e 12+ yr, season (MODERNA) Alex Florentino PA-C Work Phone: [facility] 03-31-2023 Seasonal, quadrivale nt, recombinant, injectable influenza vaccine, preservative free Alex Florentino PA-C Work Phone: [facility] Work Phone: 04-10-2021 COVID-19 vaccine, fu ll dose (MODERNA) Marialuisa Verdugo INTERVENTIONAL CARDIOLOGIST.PRODUCT MARKETING EXECUTIVE Work Phone: [facility] Work Phone: 08-07-2020 COVID-19 vaccine, fu ll dose (MODERNA) Marialuisa Verdugo INTERVENTIONAL CARDIOLOGIST.PRODUCT MARKETING EXECUTIVE Work Phone: [facility] Work Phone: 07-10-2020 COVID-19 vaccine, fu ll dose (MODERNA) Marialuisa Verdugo INTERVENTIONAL CARDIOLOGIST.PRODUCT MARKETING EXECUTIVE Work Phone: [facility] Work Phone: 03-20-2020 Influenza, injectabl e, Madin [place] Canine Kidney, preservative free, quadrivalent Marialuisa Verdugo INTERVENTIONAL CARDIOLOGIST.PRODUCT MARKETING EXECUTIVE Work Phone: [facility] Work Phone: 03-20-2020 influenza, seasonal, injectable Marialuisa Evrdugo INTERVENTIONAL CARDIOLOGIST.PRODUCT MARKETING EXECUTIVE Work Phone: [facility] 12-11-2019 tetanus toxoid, redu charlie diphtheria toxoid, and acellular pertussis vaccine, adsorbed Marialuisa Verdugo INTERVENTIONAL CARDIOLOGIST.PRODUCT MARKETING EXECUTIVE Work Phone: [facility] Work Phone: 05-31-2018 Influenza, injectabl e, Madin Nan Canine Kidney, preservative free, quadrivalent Marialuisa Verdugo INTERVENTIONAL CARDIOLOGIST.PRODUCT MARKETING EXECUTIVE Work Phone: [facility] Work Phone: 06-09-2016 human papilloma viru s vaccine, bivalent Marialuisa Verdugo INTERVENTIONAL CARDIOLOGIST.PRODUCT MARKETING EXECUTIVE Work Phone: [facility] 01-04-2016 human papilloma viru s vaccine, bivalent Marialuisa Verdugo INTERVENTIONAL CARDIOLOGIST.PRODUCT MARKETING EXECUTIVE Work Phone: [facility] 11-03-2015 human papilloma viru s vaccine, bivalent Marialuisa Verdugo INTERVENTIONAL CARDIOLOGIST.PRODUCT MARKETING EXECUTIVE Work Phone: [facility] 04-19-2013 influenza virus vacc ine, unspecified formulation Marialuisa Verdugo INTERVENTIONAL CARDIOLOGIST.PRODUCT MARKETING EXECUTIVE Work Phone: [facility] Work Phone: 05-25-2012 influenza, seasonal, injectable Marialuisa Verdugo INTERVENTIONAL CARDIOLOGIST.PRODUCT MARKETING EXECUTIVE Work Phone: [facility] Work Phone: 05-16-2011 influenza, seasonal, injectable, preservative free Marialuisa Verdugo INTERVENTIONAL CARDIOLOGIST.PRODUCT MARKETING EXECUTIVE Work Phone: [facility] Work Phone: 02-28-2011 influenza, seasonal, injectable Marialuisa Verdugo INTERVENTIONAL CARDIOLOGIST.PRODUCT MARKETING EXECUTIVE Work Phone: [facility] Work Phone: 01-01-2010 tetanus toxoid, redu charlie diphtheria toxoid, and acellular pertussis vaccine, adsorbed Marialuisa Verdugo APRN.PRODUCT MARKETING EXECUTIVE Work Phone: [facility] 01-23-2009 meningococcal polysaccharide (groups A, C, Y and W-135) diphtheria toxoid conjugate vaccine (MCV4P) Marialuisaruss Verdugo APRN.PRODUCT MARKETING EXECUTIVE Work Phone: [facility] Work Phone: 04-21-2008 influenza virus vacc ine, whole virus Marialuisaruss Verdugo APRN.PRODUCT MARKETING EXECUTIVE Work Phone: [facility] Work Phone: 01-20-2003 diphtheria, tetanus toxoids and acellular pertussis vaccine, unspecified formulation Marialuisa Verdugo APRN.PRODUCT MARKETING EXECUTIVE Work Phone: [facility] Work Phone: 01-20-2003 measles, mumps and rubella virus vaccine Marialuisa Verdugo APRN.PRODUCT MARKETING EXECUTIVE Work Phone: [facility] Work Phone: 01-20-2003 poliovirus vaccine, inactivated Marialuisa Verdugo APRN.PRODUCT MARKETING EXECUTIVE Work Phone: [facility] Work Phone: 05-17-1999 diphtheria, tetanus toxoids and acellular pertussis vaccine, unspecified formulation Marialuisa Verdugo APRN.PRODUCT MARKETING EXECUTIVE Work Phone: [facility] Work Phone: 05-17-1999 haemophilus influenz ae type b vaccine, PRP-OMP conjugate Marialuisaruss Verdugo APRN.PRODUCT MARKETING EXECUTIVE Work Phone: [facility] Work Phone: 05-17-1999 measles, mumps and rubella virus vaccine Marialuisa Verdugo APRN.PRODUCT MARKETING EXECUTIVE Work Phone: [facility] Work Phone: 05-17-1999 trivalent poliovirus vaccine, live, oral Marialuisa eVrdugo APRN.PRODUCT MARKETING EXECUTIVE Work Phone: [facility] Work Phone: 06-23-1998 diphtheria, tetanus toxoids and acellular pertussis vaccine, unspecified formulation Marialuisa Verdugo INTERVENTIONAL CARDIOLOGIST.PRODUCT MARKETING EXECUTIVE Work Phone: [facility] Work Phone: 06-23-1998 haemophilus influenz ae type b vaccine, PRP-OMP conjugate Marialuisa Verdugo INTERVENTIONAL CARDIOLOGIST.PRODUCT MARKETING EXECUTIVE Work Phone: [facility] Work Phone: 06-23-1998 hepatitis B vaccine, pediatric or pediatric/adolescent dosage Marialuisa Verdugo INTERVENTIONAL CARDIOLOGIST.PRODUCT MARKETING EXECUTIVE Work Phone: [facility] Work Phone: 04-21-1998 diphtheria, tetanus toxoids and acellular pertussis vaccine, unspecified formulation Marialuisa Verdugo INTERVENTIONAL CARDIOLOGIST.PRODUCT MARKETING EXECUTIVE Work Phone: [facility] Work Phone: 04-21-1998 haemophilus influenz ae type b vaccine, conjugate unspecified formulation Marialuisa Verdugo INTERVENTIONAL CARDIOLOGIST.PRODUCT MARKETING EXECUTIVE Work Phone: [facility] Work Phone: 04-21-1998 poliovirus vaccine, unspecified formulation Marialuisa Verdugo INTERVENTIONAL CARDIOLOGIST.PRODUCT MARKETING EXECUTIVE Work Phone: [facility] Work Phone: 02-17-1998 diphtheria, tetanus toxoids and acellular pertussis vaccine, unspecified formulation Marialuisa Verdugo INTERVENTIONAL CARDIOLOGIST.PRODUCT MARKETING EXECUTIVE Work Phone: [facility] Work Phone: 02-17-1998 haemophilus influenz ae type b vaccine, HbOC conjugate Marialuisa Verdugo INTERVENTIONAL CARDIOLOGIST.PRODUCT MARKETING EXECUTIVE Work Phone: [facility] Work Phone: 02-17-1998 poliovirus vaccine, inactivated Marialuisa Verdugo INTERVENTIONAL CARDIOLOGIST.PRODUCT MARKETING EXECUTIVE Work Phone: [facility] Work Phone: 01-17-1998 hepatitis B vaccine, pediatric or pediatric/adolescent dosage Marialuisa Verdugo INTERVENTIONAL CARDIOLOGIST.PRODUCT MARKETING EXECUTIVE Work Phone: [facility] Work Phone: 1997 hepatitis B vaccine, pediatric or pediatric/adolescent dosage Marialuisa Verdugo APRN.PRODUCT MARKETING EXECUTIVE Work Phone: [facility] Work Phone: Payers Date Payer Category Payer Unknown [id number] 2019 Unknown MMO MMO [employer] [id number] 2019-Present [phone] [address] [place] [address] PPO [id number] 2019 Unknown [id number] 1997 Unknown [id number] 1997 Unknown [id number] 1997 Unknown [id number] 1997 Unknown [id number] 1997 Unknown [id number] 1997 Unknown [id number] 1997 Unknown [id number] 1997 Unknown [id number] 1997 Unknown [id number] 1997 Unknown [id number] 1997 Unknown [id number] Social History Date Type Detail Facility Start: 10-20-2010 End: 08-26-2022 Tobacco smoking status NHIS Never smoked tobacco [facility] Start: 10-20-2010 End: 08-26-2022 Tobacco use and exposure Smokeless tobacco non-user [facility] Start: 12-10-2021 End: 04-12-2023 Alcohol intake Current drinker of alcohol (finding) [facility] Start: 12-09-2019 History SDOH Alcohol Frequency 4 [facility] Start: 12-09-2019 History SDOH Alcohol Std Drinks 1 [facility] Start: 12-09-2019 History SDOH Social Connections Phone 5 [facility] Start: 12-09-2019 History SDOH Social Connections Get Together 3 [facility] Start: 12-09-2019 History SDOH Social Connections Membership 2 [facility] Start: 12-09-2019 History SDOH Social Connections Living 7 [facility] Start: 12-08-2019 Education 17 [facility] Start: 1995 Sex Assigned At Female [facility] Start: 11-30-2021 End: 12-10-2021 Exposure to SARS-CoV-2 (event) Not sure [facility] Work Phone: Start: 12-08-2019 End: 12-27-2022 History of Social function [facility] Start: 12-08-2019 End: 12-27-2022 Social connection and isolation panel [facility] Do you belong to any clubs or organizations such as religion groups, unions, fraternal or athletic groups, or school groups? No [facility] Are you now , , , , never or living with a partner? Never [facility] How often to you hav e a drink containing alcohol? 2-3 time sa week [facility] How many standard dr inks containing alcohol do you have on a typical day? 1 or 2 [facility] How often do you hav e 6 or more drinks on 1 occasion? Never [facility] How hard is it for y ou to pay for the very basics like food, housing, medical care, and heating Not hard at all [facility] Do you feel stress - tense, restless, nervous, or anxious, or unable to sleep at night because your mind is troubled all the time - these days [OSQ] Only a little [facility] (I/We) worried wheth er (my/our) food would run out before (I/we) got money to buy more. Never true [facility] Start: 12-05-2021 Gender identity Identifies as female gender (finding) [facility] Clinical Notes 12-10-2021 to 04-12-2023 Patient InstructionsAlex Florentino PA-C - 04/12/2023 6:39 PM EDBatsheva Mcdonald APRN.FRONT SIGHT ATTACHER - 09/02/2022 3:34 PM EDTAddendum Note - Marialuisa Verdugo APRN.PRODUCT MARKETING EXECUTIVE - 08/26/2022 8:33 AM EST Note Date & Type Note Facility 04-12-2023 Note HNO ID: [id number] Author: Alex Florentino PA-C Service: ? Author Type: Physician Water Resource Engineering Specialist Type: Progress Notes Filed: 04/12/2023 8:09 PM Note Text: This note was created using adSageriter. Subjective Fallon Bravo is a 27 year old female. Patient 12.5 weeks c/o sore throat, clear sinus drainage, difficulty swallowing, NPC, b/l ear pain, and decreased hearing x 2 weeks. Sxs started 2 weeks ago did go to [facility] Strep negative and was prescribed Zpack that she did not take. States they were unable visualize TM d/t cerumen impaction. Has PMH cerumen impaction told use Debrox and return to [facility] in 4 to 6 weeks once URI symptoms improve. No fever, chills, N/V, SOB, CP, GEORGE, abdominal pain. ROS as below. States started to feel better but now the mucus feeling worse again the worst part is sore throat. Sore throat scratchy. No asthma, COPD or smoking. No other Tx other than tylenol. Sick contacts at work. Allergic to Amoxicillin. The history is provided by the patient. No resident care associate was used. Sore Throat This is a recurrent problem. The current episode started 1 to 4 weeks ago. The problem has been unchanged. Neither side of throat is experiencing more pain than the other. There has been no fever. The pain is at a severity of 5/10. The pain is moderate. Associated symptoms include congestion, coughing, ear pain, a plugged ear sensation, swollen glands and trouble swallowing. Pertinent negatives include no abdominal pain, diarrhea, drooling, ear discharge, headaches, hoarse voice, neck pain, shortness of breath, stridor or vomiting. She has had no exposure to strep or mono. She has tried acetaminophen for the symptoms. The treatment provided mild relief. Review of Systems Constitutional: Negative for activity change, appetite change, chills, diaphoresis, fatigue, fever and unexpected weight change. HENT: Positive for congestion, ear pain, postnasal drip, rhinorrhea, sore throat and trouble swallowing. Negative for dental problem, drooling, ear discharge, facial swelling, hearing loss, hoarse voice, mouth sores, nosebleeds, sinus pressure, sinus pain, sneezing, tinnitus and voice change. Eyes: Negative. Respiratory: Positive for cough. Negative for apnea, choking, chest tightness, shortness of breath, wheezing and stridor. Cardiovascular: Negative for chest pain and leg swelling. Gastrointestinal: Negative for abdominal pain, diarrhea, nausea and vomiting. Musculoskeletal: Negative for arthralgias, back pain, gait problem, joint swelling, myalgias, neck pain and neck stiffness. Skin: Negative for color change, pallor, rash and wound. Neurological: Negative for dizziness, light-headedness and headaches. Objective BP 111/76 Pulse 105 Temp 36.9 ?C (98.5 ?F) Wt 65.3 kg (144 lb) LMP 11/18/2019 SpO2 100% BMI 21.27 kg/m? VSS Physical Exam Vitals and nursing note reviewed. Constitutional: General: She is not in acute distress. Appearance: Normal appearance. She is normal weight. She is not ill-appearing, toxic-appearing or diaphoretic. HENT: Head: Normocephalic and atraumatic. Right Ear: Hearing and external ear normal. There is impacted cerumen. Left Ear: Hearing and external ear normal. There is impacted cerumen. Nose: Mucosal edema, congestion and rhinorrhea present. No nasal tenderness. Rhinorrhea is clear. Right Turbinates: Enlarged, swollen and pale. Left Turbinates: Enlarged, swollen and pale. Right Sinus: No maxillary sinus tenderness or frontal sinus tenderness. Left Sinus: No maxillary sinus tenderness or frontal sinus tenderness. Mouth/Throat: Lips: [place]. Mouth: Mucous membranes are moist. Tongue: No lesions. Tongue does not deviate from midline. Palate: No mass and lesions. Pharynx: Oropharynx is clear. Uvula midline. No pharyngeal swelling, oropharyngeal exudate, posterior oropharyngeal erythema or uvula swelling. Tonsils: No tonsillar exudate or tonsillar abscesses. Cardiovascular: Rate and Rhythm: Regular rhythm. Tachycardia present. Pulses: Normal pulses. Heart sounds: Normal heart sounds. No murmur heard. No friction rub. No gallop. Pulmonary: Effort: Pulmonary effort is normal. No respiratory distress. Breath sounds: Normal breath sounds. No stridor. No wheezing, rhonchi or rales. Musculoskeletal: General: No swelling, tenderness, deformity or signs of injury. Normal range of motion. Cervical back: Normal range of motion and neck supple. No rigidity or tenderness. Right lower leg: No edema. Left lower leg: No edema. Lymphadenopathy: Cervical: No cervical adenopathy. Skin: General: Skin is warm and dry. Coloration: Skin is not jaundiced or pale. Findings: No bruising, erythema, lesion or rash. Neurological: General: No focal deficit present. Mental Status: She is alert and oriented to person, place, and time. Mental status is at baseline. Psychiatric: Mood and A (more content not included)... [facility] 04-12-2023 Instructions Alex Florentino PA-C - 04/12/2023 6:52 PM EDT Fluids and rest Follow up with PCP and FOLLOW UP CLERK as needed Likely viral Please take any of the medication high lighted/identified in the accompanying list if you have any additional questions about medications safe during direct them toward the Pharmacist Follow up with [facility] for ear irrigation as needed Warm homemade Honey Lemon Tea Honey for cough Warm, salt water gargles or with Listerine three times a day for sore throat [place] (Broth/chicken noodle soup, Rice, Applesauce, [place]) soft diet until feeling better Increase clears, decrease dairy/sugar products May take Acetaminophen for fever/pain relief Saline Nasal [place] for nasal congestion Humidifier/steamy room/pot for sinus pressure or headache Good hand washing RTC in 7 days if not better, sooner if any worsening of symptoms If any worsening of condition please go to [facility] Emergency room/nearest emergency room/call 911 SORE THROAT INSTRUCTIONS SORE THROAT OVERVIEW - Sore throat is a common problem during childhood, and is usually the result of a bacterial or viral infection. Although sore throat usually resolves without complications, it sometimes requires treatment with an antibiotic. There are some less common causes of sore throat that are serious or even life-threatening. This topic will discuss the most common causes and treatments of sore throat in children, as well as the warning signs of more serious conditions. SORE THROAT CAUSES - The most likely cause of a child's sore throat depends upon the child's age, the season, and the geographic area. While viruses are the most common cause of sore throat, bacteria are another common cause. Bacteria and viruses are spread from one person to another through hand contact. Hands get contaminated when the sick individual touches their nose or mouth and then touches another person directly (razd-qe-edvc contact) or indirectly (nrru-vs-xwdkkz, such as doorknob, telephone, toys). It is difficult to determine the cause of sore throat based upon symptoms alone; an examination and laboratory test are recommended in most cases Viruses - There are many viruses that can cause pain and swelling of the throat. The most common include viruses that cause sore throat as part of an upper respiratory infection, such as the common cold. Other viruses that cause sore throat include influenza, adenovirus, and Danielito-Kurtz virus (the cause of mononucleosis). Symptoms - Symptoms that may occur with a viral infection can include a runny nose and congestion, irritation or redness of the eyes, cough, hoarseness, soreness in the roof of the mouth, a skin rash, or diarrhea. In addition, children with viral infections may have a fever and may feel miserable. A high fever does not necessarily mean that the child has a bacterial infection. Group A streptococcus - Group A streptococcus (GAS) is the name of the bacterium that causes strep throat. Although other bacteria can cause a sore throat, GAS is the most common bacterial cause; up to 30 percent of children with a sore throat will have GAS. Strep throat usually occurs during the winter and early spring, and is most common in school-age children and their younger siblings. Symptoms - Symptoms of strep throat in children older than 3 years often develop suddenly and include fever (temperature ?100.4 F or 38 C), headache, abdominal pain, nausea, and vomiting. Other symptoms can include swollen glands in the neck, white patches of pus in the back or sides of the throat, small red spots on the roof of the mouth, and swelling of the uvula. A cough and cold are not commonly seen in children with strep throat. Strep throat is uncommon in children younger than age 2 to 3 years. However, GAS infection can occur in younger children, and may cause a runny nose and congestion that is prolonged, low-grade fever (?101 F or 38.3 C), and tender glands in the neck. Infants younger than 1 year may be fussy and have a decreased appetite and low-grade fever. SORE THROAT TREATMENT - The treatment of sore throat depends upon the cause; strep throat is treated with an antibiotic while viral pharyngitis is treated with rest, pain relievers, and other measures to reduce symptoms. Strep throat - Strep throat is usually treated with an antibiotic, such as penicillin, or an antibiotic similar to penicillin (eg, amoxicillin). Children who are allergic to penicillin will be given an alternate antibiotic. The antibiotic is usually given in pill or liquid form two or three times per day. A one-time injection is also available, and may be recommended if a child is unwilling to take an oral medication. After completing 24 hours of antibiotics, the child is no longer contagious and may return to school. Symptoms usually improve within 1 to 2 days. However, it is important for the child to finish the entire course of treatment (usually 10 days). If a child does not begin to improve or worsens within 3 days, the child should be reevaluated. Throat pain can be treated with a non-prescription pain medication, if needed. (See 'Pain medications' below.) In addition, parents should monitor their child for dehydration, which can develop if the child is not willing to drink or eat due to a sore throat. (See 'Monitor for dehydration' below.) Viral throat pain - Sore throat caused by viral infections usually last 4 to 5 days. During this time, treatments to reduce pain may be helpful but will not help to eliminate the virus. Antibiotics do not improve throat pain caused by a virus and are not recommended. A child with a viral infection is usually allowed to return to school when there has been no fever for 24 hours and the child feels well enough to pay attention. Pain medications - Throat pain can be treated with a mild pain reliever such as acetaminophen (Tylenol ). These medications should be dosed according to weight, not age. Aspirin is not recommended for children <18 years due to the risk of a potentially serious condition known as Rima syndrome. Monitor for dehydration - Some children with a sore throat are reluctant to drink or eat due to pain. Drinking less fluid can lead to dehydration. To reduce the risk of dehydration, parents can offer warm or cold liquids. (See 'Other interventions' below.) Signs and symptoms of mild dehydration include a slightly dry mouth, increased thirst, and decreased urine output (one wet diaper or void in six hours). Signs of moderate or severe dehydration include decreased urine output (less than one wet diaper or void in six hours), lack of tears when crying, dry mouth, and sunken eyes. A child who is moderately or severely dehydrated should be evaluated by a healthcare provider as soon as possible to determine if treatment is needed. Oral rinses- Salt-water gargles are an old stand-by for relief of throat pain. It is not clear if this treatment is effective, but it is unlikely to be harmful. Most recipes suggest 1/4 to 1/2 teaspoon of salt per cup (8 ounces) of warm water. The water should be gargled and then spit out (not swallowed). Children younger than six to eight years are not able to gargle properly. An oral rinse composed of equal parts of diphenhydramine (Benadryl liquid) may be helpful for pain caused by a sore mouth or ulcers in the mouth. Children older than six to eight years may swish and spit (not swallow) the mixture. Sprays - Sprays containing topical anesthetics are available to treat sore throat. However, such sprays are no more effective than sucking on hard candy. In addition, a common anesthetic ingredient, benzocaine, can cause allergic reactions. We do not recommend throat sprays for children. Lozenges - A variety of medicated throat lozenges are available to relieve dryness or pain. However, it is not clear that lozenges work any better than hard candy. We do not recommend throat lozenges for children, especially children younger than 3 to 4 years, who can choke. Sucking on hard candy may provide some relief for children older than 3 to 4 years, who are not at risk for choking. Other interventions - Other interventions include sipping warm beverages (eg, honey or lemon tea, chicken soup), cold beverages, or eating cold or frozen desserts (eg, ice cream, popsicles). These treatments are safe for children. Honey should not be given to children younger than 12 months due to the potential risk of botulism poisoning. Alternative therapies - Health food stores, vitamin outlets, and Internet Web sites offer alternative treatments for relief of sore throat pain. We do not recommend these treatments due to the risks of contamination with pesticides/herbicides, inaccurate labeling and dosing information, and a lack of studies showing that these treatments are safe and effective. SORE THROAT PREVENTION - Hand washing is an essential and highly effective way to prevent the spread of infection. Hands should be wet with water and plain soap, and rubbed together for 15 to 30 seconds. Special attention should be paid to the fingernails, between the fingers, and the wrists. Hands should be rinsed thoroughly, and dried with a single use towel. Alcohol-based hand rubs are a good alternative for disinfecting hands if a sink is not available. Hand rubs should be spread over the entire surface of hands, fingers, and wrists until dry, and may be used several times. These rubs can be used repeatedly without skin irritation or loss of effectiveness. Hand rubs are available as a liquid or wipe in small, portable sizes that are easy to carry in a pocket or handbag. When a sink is available, visibly soiled hands should be washed with soap and water. Hands should be washed after coughing, blowing the nose or sneezing. While it is not always possible to limit contact with a person who is sick, avoiding touching the eyes, nose, or mouth after direct contact can help to prevent the spread of infection. In addition, tissues should be used to cover the mouth when sneezing or coughing. These used tissues should be disposed of promptly. Sneezing/coughing into the sleeve of one's clothing (at the inner elbow) is another means of containing sprays of saliva and secretions and has the advantage of not contaminating the hands. WHEN TO SEEK HELP - Parents of a child with throat pain and one or more of the following should contact their healthcare provider immediately: Difficulty swallowing or breathing Excessive drooling in an or young child Temperature ?101 F or 38.3 C Swelling of the neck Child is unable or unwilling to drink or eat Voice sounds muffled Child has a stiff neck or difficulty opening the mouth WHERE TO GET MORE INFORMATION - Your child's healthcare provider is the best source of information for questions and concerns related to your child's medical problem. This article will be updated as needed every four months on our web site ([email or web address]). Information below was obtained from Up to date Last literature review version 19.2: October 2010 This topic last updated: February 03, 2010 [facility] PATIENT INFO COMMON COLD OVERVIEW The common cold is one of the most frequent illnesses in the [place]. Although most colds are mild and resolve within a short time period, colds cost billions of dollars per year, mostly due to lost time at work and school. COMMON COLD CAUSES The common cold is a group of symptoms caused by one of a large number of viruses. Rhinoviruses cause the greatest number of colds; there are more than 100 different varieties of rhinovirus. Most viruses cause a person to be ill only once. However, due to the large number of viruses, a person can have a cold multiple times throughout his or her lifetime. The average adult experiences two to three colds per year, while children average 8 to 12 colds per year. Colds are transmitted from [id number]-[id number]. Less often, the virus can be transmitted by touching a surface. Direct contact -- People with colds typically carry the cold virus on their hands. The virus may remain alive on the skin and capable of infecting another person for at least two hours. Thus, if a sick person shakes someone's hand and that individual then touches his eye, nose, or mouth, the virus can be transmitted and later infect that person. Infection from particles on surfaces -- Some cold viruses can live on surfaces (such as a counter top, door handle, or phone) for several hours. Inhaling viral particles -- Droplets containing viral particles can be breathed, coughed, or sneezed into the air by a person with a cold. The virus can be transmitted to others if another person is standing close (a few feet) and the droplet touches that person s eye, nose, or mouth. Covering the mouth while coughing or sneezing greatly reduces this risk. Most cold viruses are not spread by saliva. Thus, kissing itself is not likely to transmit the common cold, but close direct contact can. Colds are not caused by cold climates or being exposed to cold air. However, some types of virus cause more colds during certain seasons (eg, fall and winter versus spring). COMMON COLD SIGNS AND SYMPTOMS The common cold usually causes nasal congestion, runny nose, and sneezing. A sore throat may be present on the first day but usually resolves quickly. If a cough occurs, it generally develops on about the fourth or fifth day of symptoms, typically when congestion and runny nose are usually resolving. COMMON COLD COMPLICATIONS In most cases, colds do not cause serious illness. Most colds last for three to seven days, although many people continue to have symptoms (coughing, sneezing, congestion) for up to two weeks. Some viruses that cause the common cold can also depress the immune system or cause swelling in the lining of the nose or airways; this can, in turn, lead to a new viral infection or bacterial infection. One of the more common complications is sinusitis, which is usually caused by viruses and rarely (about 2 percent of the time) by bacteria. However, it can be difficult to distinguish bacterial sinusitis from sinusitis caused by a cold because the signs and symptoms can be similar Having thick or yellow to green-colored nasal discharge does not mean that bacterial sinusitis has developed; discolored nasal discharge is a normal phase of the common cold. Lower respiratory infections, such as pneumonia or bronchitis, may develop following a cold. Infection of the middle ear, or otitis media, can accompany or follow a cold. The influenza virus, which causes the flu, can also cause features similar to those of a cold. However, the flu usually causes other signs and symptoms (fever, body aches) and is more serious than a cold. COMMON COLD TREATMENT There is no specific treatment for the viruses that cause the common cold. Most treatments are aimed at relieving some of the symptoms of the cold, but do not shorten or cure the cold. Antibiotics are not useful for treating the common cold; antibiotics are only used to treat illnesses caused by bacteria, not viruses. The symptoms of a cold will resolve over time, even without any treatment. The following are treatments that may reduce the symptoms caused by the common cold. People with underlying medical conditions and those who use other jkjn-mko-edyrzxd or prescription medications should speak with their healthcare provider or pharmacist to ensure that it is safe to use these treatments. Runny nose and nasal congestion -- Runny nose and congestion may improve with the use of decongestants. Pseudoephedrine is a decongestant that can improve nasal congestion. Most drugstores in the [place] carry pseudoephedrine behind the counter, so it must be requested from the pharmacist (a prescription is not required). Antihistamines such as diphenhydramine (Benadryl ) may also help, but can cause side effects such as drowsiness and drying of the eyes, nose, and mouth. Nasal inhalers, including ipratropium bromide (Atrovent , available by prescription) may relieve runny nose and sneezing while cromolyn sodium (NasalCrom , a non-prescription medicine) may relieve runny nose, cough, and sneezing. Other nasal sprays such an oxymetazoline (Afrin and others) can also give temporary relief of nasal congestion. However, these sprays should never be used for more than two to three days; use for more than three days use can worsen congestion. Nasal irrigation and saline sprays -- Rinsing the nose with a salt-water (saline) solution is called nasal irrigation or nasal lavage. Saline is also available in a standard nasal spray, although this is not as effective as using larger amounts of water in an irrigation. Nasal irrigation is particularly useful for treating drainage down the back of the throat, sneezing, nasal dryness, and congestion. The treatment helps by rinsing out allergens and irritants from the nose. Saline rinses also clean the nasal lining and can be used before applying sprays containing medications, to get a better effect from the medication. Nasal lavage with warmed saline can be performed as needed, once per day, or twice daily for increased symptoms. Nasal lavage carries few risks when performed correctly. Saline nasal sprays and irrigation kits can be purchased [id number]. Saline mixes can also be purchased or patients can make their own solution. A variety of devices, including bulb syringes, Neti pots, and bottle sprayers, may be used to perform nasal lavage; instructions for nasal lavage are provided in the table. At least 200 mL (about 3/4 cup) of fluid is recommended for each nostril. Sore throat and headache -- Sore throat and headache are best treated with a mild pain reliever such as acetaminophen (Tylenol ). Cough -- Common cough medicine ingredients include guaifenesin and dextromethorphan; these are often combined with other medications in fnqr-dit-skizhgm cold formulas. However, the benefit of cough medicines is likely to be small to non-existent. In clinical trials, cough suppressants were no more effective in reducing the duration or severity of coughing due to cold than a placebo (a non-drug substitute). Antibiotics -- Antibiotics should not be used to treat an uncomplicated common cold. As noted above, colds are caused by viruses. Antibiotics treat bacterial, not viral infections. Alternative treatments -- Heated, humidified air can improve symptoms of nasal congestion and runny nose, and causes few to no side effects. PREVENTION Hand washing is an essential and highly effective way to prevent the spread of infection. Hands should be wet with water and plain soap, and rubbed together for 15 to 30 seconds. Special attention should be paid to the fingernails, between the fingers, and the wrists. Hands should be rinsed thoroughly, and dried with a single use towel. Alcohol-based hand rubs are a good alternative for disinfecting hands if a sink is not available. Hand rubs should be spread over the entire surface of hands, fingers, and wrists until dry, and may be used several times. These rubs can be used repeatedly without skin irritation or loss of effectiveness. Hand rubs are available as a liquid or wipe in small, portable sizes that are easy to carry in a pocket or handbag. When a sink is available, visibly soiled hands should be washed with soap and water. Hands should be washed before preparing food and eating, and after coughing, blowing the nose, or sneezing. While it is not always possible to limit contact with people who may be infected with a cold, touching the eyes, nose, or mouth after direct contact should be avoided when possible. In addition, tissues should be used to cover the mouth when sneezing or coughing. These used tissues should be disposed of promptly. Sneezing/coughing into the sleeve of one's clothing (at the inner elbow) is another means of containing sprays of saliva and secretions and does not contaminate the hands. SUMMARY The average adult experiences two to three colds per year, while children average 8 to 12 colds per year. Symptoms of the common cold usually include nasal congestion, runny nose, and sneezing. They typically last for three to seven days, although many people have symptoms (coughing, sneezing, congestion) for up to two weeks. People with colds typically carry the cold virus on their hands, where it can infect another person for at least two hours. Some cold viruses can live on surfaces (such as a counter top, door handle, or phone) for several hours. Droplets containing viral particles can be breathed, coughed, or sneezed into the air. There is no specific treatment for colds. Treatment may reduce some of the symptoms of the cold, but do not shorten or cure the cold. Antibiotics are not useful for treating the common cold. Hand washing can prevent the spread of infection. Hands should be wet with water and plain soap, and rubbed together for 15 to 30 seconds. Alcohol-based hand rubs are a good alternative for disinfecting hands if a sink is not available documented in this encounter [facility] 04-12-2023 History of Presen t illness Narrative This note was created using adSageriter. Subjective Fallon Bravo is a 27 year old female. Patient 12.5 weeks c/o sore throat, clear sinus drainage, difficulty swallowing, NPC, b/l ear pain, and decreased hearing x 2 weeks. Sxs started 2 weeks ago did go to [facility] Strep negative and was prescribed Zpack that she did not take. States they were unable visualize TM d/t cerumen impaction. Has PMH cerumen impaction told use Debrox and return to [facility] in 4 to 6 weeks once URI symptoms improve. No fever, chills, N/V, SOB, CP, GEORGE, abdominal pain. ROS as below. States started to feel better but now the mucus feeling worse again the worst part is sore throat. Sore throat scratchy. No asthma, COPD or smoking. No other Tx other than tylenol. Sick contacts at work. Allergic to Amoxicillin. The history is provided by the patient. No resident care associate was used. Sore Throat This is a recurrent problem. The current episode started 1 to 4 weeks ago. The problem has been unchanged. Neither side of throat is experiencing more pain than the other. There has been no fever. The pain is at a severity of 5/10. The pain is moderate. Associated symptoms include congestion, coughing, ear pain, a plugged ear sensation, swollen glands and trouble swallowing. Pertinent negatives include no abdominal pain, diarrhea, drooling, ear discharge, headaches, hoarse voice, neck pain, shortness of breath, stridor or vomiting. She has had no exposure to strep or mono. She has tried acetaminophen for the symptoms. The treatment provided mild relief. Review of Systems Constitutional: Negative for activity change, appetite change, chills, diaphoresis, fatigue, fever and unexpected weight change. HENT: Positive for congestion, ear pain, postnasal drip, rhinorrhea, sore throat and trouble swallowing. Negative for dental problem, drooling, ear discharge, facial swelling, hearing loss, hoarse voice, mouth sores, nosebleeds, sinus pressure, sinus pain, sneezing, tinnitus and voice change. Eyes: Negative. Respiratory: Positive for cough. Negative for apnea, choking, chest tightness, shortness of breath, wheezing and stridor. Cardiovascular: Negative for chest pain and leg swelling. Gastrointestinal: Negative for abdominal pain, diarrhea, nausea and vomiting. Musculoskeletal: Negative for arthralgias, back pain, gait problem, joint swelling, myalgias, neck pain and neck stiffness. Skin: Negative for color change, pallor, rash and wound. Neurological: Negative for dizziness, light-headedness and headaches. Objective BP 111/76 Pulse 105 Temp 36.9 C (98.5 F) Wt 65.3 kg (144 lb) LMP 11/18/2019 SpO2 100% BMI 21.27 kg/m VSS Physical Exam Vitals and nursing note reviewed. Constitutional: General: She is not in acute distress. Appearance: Normal appearance. She is normal weight. She is not ill-appearing, toxic-appearing or diaphoretic. HENT: Head: Normocephalic and atraumatic. Right Ear: Hearing and external ear normal. There is impacted cerumen. Left Ear: Hearing and external ear normal. There is impacted cerumen. Nose: Mucosal edema, congestion and rhinorrhea present. No nasal tenderness. Rhinorrhea is clear. Right Turbinates: Enlarged, swollen and pale. Left Turbinates: Enlarged, swollen and pale. Right Sinus: No maxillary sinus tenderness or frontal sinus tenderness. Left Sinus: No maxillary sinus tenderness or frontal sinus tenderness. Mouth/Throat: Lips: [place]. Mouth: Mucous membranes are moist. Tongue: No lesions. Tongue does not deviate from midline. Palate: No mass and lesions. Pharynx: Oropharynx is clear. Uvula midline. No pharyngeal swelling, oropharyngeal exudate, posterior oropharyngeal erythema or uvula swelling. Tonsils: No tonsillar exudate or tonsillar abscesses. Cardiovascular: Rate and Rhythm: Regular rhythm. Tachycardia present. Pulses: Normal pulses. Heart sounds: Normal heart sounds. No murmur heard. No friction rub. No gallop. Pulmonary: Effort: Pulmonary effort is normal. No respiratory distress. Breath sounds: Normal breath sounds. No stridor. No wheezing, rhonchi or rales. Musculoskeletal: General: No swelling, tenderness, deformity or signs of injury. Normal range of motion. Cervical back: Normal range of motion and neck supple. No rigidity or tenderness. Right lower leg: No edema. Left lower leg: No edema. Lymphadenopathy: Cervical: No cervical adenopathy. Skin: General: Skin is warm and dry. Coloration: Skin is not jaundiced or pale. Findings: No bruising, erythema, lesion or rash. Neurological: General: No focal deficit present. Mental Status: She is alert and oriented to person, place, and time. Mental status is at baseline. Psychiatric: Mood and Affect: Mood normal. Behavior: Behavior normal. Assessment and Plan ASSESSMENT/PLAN: 1. Sore throat - ICD9: 462, ICD10: J02.9 (primary diagnosis) - suspect viral - Rapid Strep negative in the office today - Discussed supportive care treatment with fluids, rest and analgesia. - The patient may also use warm salt water gargles, throat lozenges and/or OTC throat spray as needed and nasal saline gtts and suction prn. - Contagious dz precautions discussed- including considered contagious until on antibiotics for 24 hours - The patient should follow up in 7 days if symptoms persist or worsen - Call back if drooling, increased temperature, symptoms of dehydration and/or still sick in one week 2. URI, acute - ICD9: 465.9, ICD10: J06.9 - Discussed viral etiology and rationale for treatment. - Rapid strep negative in office today - Symptomatic treatment with prn analgesia - Supportive care with fluids and rest - The patient may also use warm salt water gargles, throat lozenges and/or OTC throat spray as needed and nasal saline gtts and suction prn. - Follow up in 7 days if symptoms persist or sooner if worsening of symptoms Fluids and rest Follow up with PCP and FOLLOW UP CLERK as needed Likely viral Please take any of the medication high lighted/identified in the accompanying list if you have any additional questions about medications safe during direct them toward the Pharmacist Warm homemade Honey Lemon Tea Honey for cough Warm, salt water gargles or with Listerine three times a day for sore throat [place] (Broth/chicken noodle soup, Rice, Applesauce, [place]) soft diet until feeling better Increase clears, decrease dairy/sugar products May take Acetaminophen for fever/pain relief Saline Nasal [place] for nasal congestion Humidifier/steamy room/pot for sinus pressure or headache Good hand washing RTC in 7 days if not better, sooner if any worsening of symptoms See visit diagnoses, orders and follow up recommendations Reviewed medication list I discussed the nature and progression of the above described condition and have reviewed test results that were completed today in clinic with the patient The patient has been advised to return to the clinic in the event of clinical condition not improving If any worsening of condition patient advised to go to [facility] Emergency room/nearest emergency room/call 911 Advised to continue health maintenance with primary care provider Education provided regarding visit today, see after visit summary The patient verbalized understanding of the above and all questions were answered prior to discharge. The patient was discharged in stable condition without incident. Alex Florentino PA-C documented in this encounter [facility] 12-27-2022 Note HNO ID: [id number] Author: Marialuisa Verdugo APRN.PRODUCT MARKETING EXECUTIVE Service: ? Author Type: Nurse Specialist Type: Progress Notes Filed: 12/27/2022 12:02 PM Note Text: SUBJECTIVE: DEPRESSION ASSESSMENT Never done HPI Fallon Bravo is a 27 year old female. 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 She is in her usual state of good health. Weight is stable. She is active. Tries eat a healthy diet. No symptomatic complaints today. Review of Systems Constitutional: Negative. Respiratory: Negative. Cardiovascular: Negative. Endocrine: Negative. Objective BP 110/80 Pulse 88 Resp 16 Ht 175.3 cm (5' 9 ) Wt 68.5 kg (151 lb) LMP 11/18/2019 BMI 22.30 kg/m? Physical Exam Vitals and nursing note reviewed. Constitutional: Appearance: Normal appearance. HENT: Head: Normocephalic and atraumatic. Eyes: Conjunctiva/sclera: Conjunctivae normal. Neck: Thyroid: No thyromegaly. Vascular: Normal carotid pulses. No JVD. Cardiovascular: Rate and Rhythm: Normal rate and regular rhythm. Pulses: Carotid pulses are 2+ on the right side and 2+ on the left side. Radial pulses are 2+ on the left side. Heart sounds: Normal heart sounds. Pulmonary: Effort: Pulmonary effort is normal. Breath sounds: Normal breath sounds. Abdominal: General: Bowel sounds are normal. Palpations: Abdomen is soft. Musculoskeletal: Right lower leg: No edema. Left lower leg: No edema. Skin: General: Skin is warm and dry. Neurological: General: No focal deficit present. Mental Status: She is alert and oriented to person, place, and time. ALLERGIES Allergen Reactions Amoxicillin Diarrhea, Vomiting Penicillins Intolerance nausea Wellbutrin [Bupropi* Vomiting Wellbutrin [Bupropi* Other: See Comments Numbness in legs Medications fluticasone (FLONASE) 50 mcg/actuation nasal spray Use 1-2 Sprays in each nostril once daily. Rinse mouth after use. For nasal drainage and congestion albuterol HFA (PROAIR HFA) 90 mcg/actuation inhaler Inhale 2 Puffs as instructed every 4 hours as needed for wheezing/shortness of breath. tiotropium bromide (SPIRIVA RESPIMAT) 2.5 mcg/actuation inhaler Inhale 2 Puffs as instructed once daily. benzonatate (TESSALON PERLES) 100 mg capsule Take 1-2 capsules by mouth three times daily as needed for cough. (Patient not taking: Reported on 12/27/2022) omeprazole (PRILOSEC) 20 mg capsule Take 1 capsule by mouth daily before breakfast. for abdominal pain, nausea (Patient not taking: Reported on 12/27/2022) meloxicam (MOBIC) 15 mg tablet Take 1 tablet by mouth once daily as needed. for pain. Take with food. (Patient not taking: Reported on 12/27/2022) rizatriptan (MAXALT) 10 mg tablet Take 1 tablet by mouth as needed. May repeat in 2 hours if needed (Patient not taking: Reported on 08/02/2022) PAST MEDICAL HISTORY Diagnosis Date Acne Asthma Depression Kidney stone Migraine with aura Social History Tobacco Use Smoking status: Never Smokeless tobacco: Never Vaping Use Vaping Use: Never used Substance Use Topics Alcohol use: Yes Drug use: No Component Latest Ref Rng AND Units 12/10/2021 WBC 3.70 - 11.00 k/uL 8.53 RBC 3.90 - 5.20 m/uL 4.26 Hemoglobin 11.5 - 15.5 g/dL 13.8 Hematocrit 36.0 - 46.0 % 41.0 MCV 80.0 - 100.0 fL 96.2 MCH 26.0 - 34.0 pg 32.4 MCHC 30.5 - 36.0 g/dL 33.7 RDW-CV 11.5 - 15.0 % 11.7 Platelet Count 150 - 400 k/uL 348 MPV 9.0 - 12.7 fL 9.7 Neut% % 59.5 Abs Neut (ANC) 1.45 - 7.50 k/uL 5.07 Lymph% % 28.8 Abs Lymph 1.00 - 4.00 k/uL 2.46 [place]% % 7.2 Abs [place] <0.87 k/uL 0.61 Eosin% % 3.5 Abs Eosin <0.46 k/uL 0.30 Baso% % 0.8 Abs Baso <0.11 k/uL 0.07 Immature Gran % % 0.2 IMMATURE GRANS (ABS) <0.10 k/uL <0.03 NRBC /100 WBC 0.0 Absolute nRBC <0.01 k/uL <0.01 DTYPE Auto Protein, Total 6.3 - 8.0 g/dL 7.4 Albumin 3.9 - 4.9 g/dL 4.9 Calcium 8.5 - 10.2 mg/dL 10.1 Bilirubin, Total 0.2 - 1.3 mg/dL 0.9 Alkaline Phosphatase 34 - 123 U/L 64 AST 13 - 35 U/L 25 ALT 7 - 38 U/L 13 Glucose 74 - 99 mg/dL 76 BUN 7 - 21 mg/dL 11 Creatinine 0.58 - 0.96 mg/dL 0.79 Sodium 136 - 144 mmol/L 138 Potassium 3.7 - 5.1 mmol/L 4.3 Chloride 97 - 105 mmol/L 102 CO2 22 - 30 mmol/L 25 Anion Gap 9 - 18 mmol/L 11 eGFR >=60 mL/min/1.73mA? 108 TSH 0.270 - 4.200 mIU/L 0.851 ASSESSMENT/PLAN: 1. Routine medical exam - ICD9: V70.0, ICD10: Z00.00 - Endorse healthy diet and regular exercise - Endorse calcium intake with supplements or by diet of 1000 mg/day - DEPRESSION SCREENING/ASSESSMENT Form completed and returned during visit Marialuisa Verdugo APRN.SARAH Medical Decision Ma (more content not included)... [facility] 09-02-2022 Note HNO ID: [id number] Author: Brian Mcdonald APRN.FRONT SIGHT ATTACHER Service: ? Author Type: Nurse Practitioner Type: Progress Notes Filed: 09/02/2022 3:54 PM Note Text: SUBJECTIVE Fallon Bravo is a 26 year old female here today for follow up. Chief Complaint Patient presents with: Recheck: 1 week follow up for cough HPI Fallon Bravo is a 26 year old female established patient of Dr. Faulkner who presents today for follow up. She is here today following up on a cough. She was seen 08/26/2022 with SARAH Hernandez. Started on a zpack, cefpodoxime, and tessalon. Other work up included a chest xray which showed no acute findings. Originally treated 08/02 with prednisone. Cough is better, still a lot of drainage. Some fatigue. No shortness of breath, chest pain or chest tightness. No wheezing. She has a history of exercise induced asthma, has albuterol at home and has been using this occasionally with some relief. Her medications were reviewed today and her list is now up to date. Medications Current Outpatient Medications Medication Sig tiotropium bromide (SPIRIVA RESPIMAT) 2.5 mcg/actuation inhaler Inhale 2 Puffs as instructed once daily. benzonatate (TESSALON PERLES) 100 mg capsule Take 1-2 capsules by mouth three times daily as needed for cough. omeprazole (PRILOSEC) 20 mg capsule Take 1 capsule by mouth daily before breakfast. for abdominal pain, nausea meloxicam (MOBIC) 15 mg tablet Take 1 tablet by mouth once daily as needed. for pain. Take with food. fluticasone (FLONASE) 50 mcg/actuation nasal spray Use 1-2 Sprays in each nostril once daily. Rinse mouth after use. For nasal drainage and congestion cefpodoxime (VANTIN) 100 mg tablet Take 1 tablet by mouth twice daily for 7 days. Take with food albuterol HFA (PROAIR HFA) 90 mcg/actuation inhaler Inhale 2 Puffs as instructed every 4 hours as needed for wheezing/shortness of breath. rizatriptan (MAXALT) 10 mg tablet Take 1 tablet by mouth as needed. May repeat in 2 hours if needed (Patient not taking: Reported on 08/02/2022) No current facility-administered medications for this visit. ALLERGIES Allergen Reactions Amoxicillin Diarrhea, Vomiting Penicillins Intolerance nausea Wellbutrin [Bupropi* Vomiting Wellbutrin [Bupropi* Other: See Comments Numbness in legs ACTIVE PROBLEM LIST Acute Frontal Sinusitis - 07/20/2016 Acute Maxillary Sinusitis - 07/20/2016 Chest Congestion - 07/20/2016 Cough - 07/20/2016 Sore Throat - 07/20/2016 Bilateral Acute Serous Otitis Media - 07/20/2016 Acute Bronchitis - 02/29/2016 Acute Pharyngitis - 02/29/2016 Chronic Daily Headache - 04/17/2014 Acne - 12/05/2013 Irregular Menses - 12/05/2013 Social History Tobacco Use Smoking status: Never Smokeless tobacco: Never Vaping Use Vaping Use: Never used Substance Use Topics Alcohol use: Yes Drug use: No Review of Systems Respiratory: Positive for cough. Negative for apnea, choking, chest tightness, shortness of breath, wheezing and stridor. Cardiovascular: Negative. OBJECTIVE BP 104/74 Pulse 77 Resp 16 Wt 149 lb 3.2 oz (67.7kg) SpO2 96% LMP 11/18/2019 Physical Exam Vitals and nursing note reviewed. Constitutional: General: She is awake. She is not in acute distress. Appearance: Normal appearance. She is well-developed and well-groomed. She is not ill-appearing, toxic-appearing or diaphoretic. HENT: Head: Normocephalic. Right Ear: External ear normal. Left Ear: External ear normal. Nose: Nose normal. Eyes: General: Vision grossly intact. Conjunctiva/sclera: Conjunctivae normal. Pupils: Pupils are equal, round, and reactive to light. Neck: Vascular: No JVD. Trachea: Trachea normal. Cardiovascular: Rate and Rhythm: Normal rate and regular rhythm. Pulses: Normal pulses. Heart sounds: Normal heart sounds. No murmur heard. Pulmonary: Effort: Pulmonary effort is normal. No accessory muscle usage, prolonged expiration or respiratory distress. Breath sounds: Normal breath sounds. Musculoskeletal: Cervical back: Neck supple. Skin: General: Skin is warm and dry. Capillary Refill: Capillary refill takes less than 2 seconds. Neurological: General: No focal deficit present. Mental Status: She is alert and oriented to person, place, and time. Mental status is at baseline. Psychiatric: Attention and Perception: Attention and perception normal. Mood and Affect: Mood and affect normal. Speech: Speech normal. Behavior: Behavior normal. Behavior is cooperative. Thought Content: Thought content normal. Cognition and Memory: Cognition and memory normal. Judgment: Judgment normal. ASSESSMENT/PLAN: 1. Mild intermittent asthmatic bronchitis with acute exacerbation - ICD9: 493.92, ICD10: J45.21 (primary diagnosis) Mild intermittent Asthma acute excacerbation without status and no respiratory distress - Avoidance of triggers recommended - TIOTROPIUM BROMIDE 2.5 MCG/ACTU (more content not included)... [facility] 09-02-2022 History of Presen t illness Narrative SUBJECTIVE Fallon Bravo is a 26 year old female here today for follow up. Chief Complaint Patient presents with: Recheck: 1 week follow up for cough HPI Fallon Bravo is a 26 year old female established patient of Dr. Faulkner who presents today for follow up. She is here today following up on a cough. She was seen 08/26/2022 with SARAH Hernandez. Started on a zpack, cefpodoxime, and tessalon. Other work up included a chest xray which showed no acute findings. Originally treated 08/02 with prednisone. Cough is better, still a lot of drainage. Some fatigue. No shortness of breath, chest pain or chest tightness. No wheezing. She has a history of exercise induced asthma, has albuterol at home and has been using this occasionally with some relief. Her medications were reviewed today and her list is now up to date. Medications Current Outpatient Medications Medication Sig tiotropium bromide (SPIRIVA RESPIMAT) 2.5 mcg/actuation inhaler Inhale 2 Puffs as instructed once daily. benzonatate (TESSALON PERLES) 100 mg capsule Take 1-2 capsules by mouth three times daily as needed for cough. omeprazole (PRILOSEC) 20 mg capsule Take 1 capsule by mouth daily before breakfast. for abdominal pain, nausea meloxicam (MOBIC) 15 mg tablet Take 1 tablet by mouth once daily as needed. for pain. Take with food. fluticasone (FLONASE) 50 mcg/actuation nasal spray Use 1-2 Sprays in each nostril once daily. Rinse mouth after use. For nasal drainage and congestion cefpodoxime (VANTIN) 100 mg tablet Take 1 tablet by mouth twice daily for 7 days. Take with food albuterol HFA (PROAIR HFA) 90 mcg/actuation inhaler Inhale 2 Puffs as instructed every 4 hours as needed for wheezing/shortness of breath. rizatriptan (MAXALT) 10 mg tablet Take 1 tablet by mouth as needed. May repeat in 2 hours if needed (Patient not taking: Reported on 08/02/2022) No current facility-administered medications for this visit. ALLERGIES Allergen Reactions Amoxicillin Diarrhea, Vomiting Penicillins Intolerance nausea Wellbutrin [Bupropi* Vomiting Wellbutrin [Bupropi* Other: See Comments Numbness in legs ACTIVE PROBLEM LIST Acute Frontal Sinusitis - 07/20/2016 Acute Maxillary Sinusitis - 07/20/2016 Chest Congestion - 07/20/2016 Cough - 07/20/2016 Sore Throat - 07/20/2016 Bilateral Acute Serous Otitis Media - 07/20/2016 Acute Bronchitis - 02/29/2016 Acute Pharyngitis - 02/29/2016 Chronic Daily Headache - 04/17/2014 Acne - 12/05/2013 Irregular Menses - 12/05/2013 Social History Tobacco Use Smoking status: Never Smokeless tobacco: Never Vaping Use Vaping Use: Never used Substance Use Topics Alcohol use: Yes Drug use: No Review of Systems Respiratory: Positive for cough. Negative for apnea, choking, chest tightness, shortness of breath, wheezing and stridor. Cardiovascular: Negative. OBJECTIVE BP 104/74 Pulse 77 Resp 16 Wt 149 lb 3.2 oz (67.7kg) SpO2 96% LMP 11/18/2019 Physical Exam Vitals and nursing note reviewed. Constitutional: General: She is awake. She is not in acute distress. Appearance: Normal appearance. She is well-developed and well-groomed. She is not ill-appearing, toxic-appearing or diaphoretic. HENT: Head: Normocephalic. Right Ear: External ear normal. Left Ear: External ear normal. Nose: Nose normal. Eyes: General: Vision grossly intact. Conjunctiva/sclera: Conjunctivae normal. Pupils: Pupils are equal, round, and reactive to light. Neck: Vascular: No JVD. Trachea: Trachea normal. Cardiovascular: Rate and Rhythm: Normal rate and regular rhythm. Pulses: Normal pulses. Heart sounds: Normal heart sounds. No murmur heard. Pulmonary: Effort: Pulmonary effort is normal. No accessory muscle usage, prolonged expiration or respiratory distress. Breath sounds: Normal breath sounds. Musculoskeletal: Cervical back: Neck supple. Skin: General: Skin is warm and dry. Capillary Refill: Capillary refill takes less than 2 seconds. Neurological: General: No focal deficit present. Mental Status: She is alert and oriented to person, place, and time. Mental status is at baseline. Psychiatric: Attention and Perception: Attention and perception normal. Mood and Affect: Mood and affect normal. Speech: Speech normal. Behavior: Behavior normal. Behavior is cooperative. Thought Content: Thought content normal. Cognition and Memory: Cognition and memory normal. Judgment: Judgment normal. ASSESSMENT/PLAN: 1. Mild intermittent asthmatic bronchitis with acute exacerbation - ICD9: 493.92, ICD10: J45.21 (primary diagnosis) Mild intermittent Asthma acute excacerbation without status and no respiratory distress - Avoidance of triggers recommended - TIOTROPIUM BROMIDE 2.5 MCG/ACTUATION MIST FOR INHALATION 2. Persistent cough for 3 weeks or longer - ICD9: 786.2, ICD10: R05.3 - TIOTROPIUM BROMIDE 2.5 MCG/ACTUATION MIST FOR INHALATION Portions of this note have been entered by ancillary staff. I have reviewed and when necessary edited, so that they are an adequate record of my encounter with this patient Please note that parts of this document were created using voice recognition software and therefore may contain grammatical errors. Patient verbalizes understanding of instructions from today's visit and in agreement with treatment plan. Questions answered. Agrees to call the office if questions, concerns of issues with acute symptoms not improving or if they worsen. Return if symptoms worsen or fail to improve, for Keep next scheduled appointment.. Brian Mcdonald APRN-JULIO CESAR documented in this encounter [facility] 08-26-2022 Note HNO ID: [id number] Author: GLORIA Lemus) Service: ? Author Type: Barrel Lapper Type: Progress Notes Filed: 08/26/2022 8:16 AM Note Text: Radiology Service Progress Note PATIENT NAME: Fallon Bravo DATE OF SERVICE: August 26, 2022 TIME: 8:05 AM PATIENT IDENTITY VERIFICATION COMPLETED USING TWO (2) IDENTIFIERS: Name and Date of confirmed by patient verbally. FALL SCREENING: Has the patient had 2 falls in the last year or 1 fall with injury or currently using an Ambulatory Assistive Device (Walker, Cane, Wheelchair, Crutches, etc.)? No PATIENT GENDER DATA: Female. status: : No status: NO. PATIENT RELEVANT IMPLANT DATA REVIEWED: Yes RADIOLOGY DEPARTMENT: General X-ray: Exam(s) Completed: Chest X-Ray PERIPHERAL IV DATA: Not applicable SIGNED BY: RT Mariah(Dorie) August 26, 2022 8:05 AM [facility] 08-26-2022 Note HNO ID: [id number] Author: Marialuisa Verdugo APRN.PRODUCT MARKETING EXECUTIVE Service: ? Author Type: Nurse Specialist Type: Progress Notes Filed: 08/26/2022 8:08 AM Note Text: SUBJECTIVE: MENINGOCOCCAL B: Consider based on risk(2 of 2 - Risk Bexsero 2-dose series) due on 2013 INFLUENZA(1) due on 02/17/2022 PAP TESTING due on 04/08/2022 DEPRESSION ASSESSMENT Never done HPI Fallon Bravo is a 26 year old female. PMH significant for ACTIVE PROBLEM LIST Acne Irregular Menses Chronic Daily Headache Acute Bronchitis Acute Pharyngitis Acute Frontal Sinusitis Acute Maxillary Sinusitis Chest Congestion Cough Sore Throat Bilateral Acute Serous Otitis Media HPI excerpted from previous visit: She reports palpitations off and on for about 1 year. Used to happen just now and then. Happening more frequently now, now about once weekly. She notes having COVID in June 2021, palpitations predated this. Onset: No known cause for onset Character: Feels like rapid or extra beats. Feels like strong beats on occasion. Lasts up to 20 minutes. No associated symptoms. Frequency: Happen about once a week Exertional: Can occur after exercise At rest: : Can occur with rest Aggravating: Cannot identify any routine causes Alleviating: With rest Associated symptoms: None reported No reported change in functional capacity, no limitations reported She notes using allergy medicine but no pseudoephedrine products. Cut out caffeine did not seem to make much difference. No report of alcohol intake. Lab results and ZIO were in acceptable range. Presents today regarding fatigue. Since last seen she had a visit in [facility] March 15, 2022 for sinusitis. Seen July 29, 2022 for pharyngitis. Seen August 02, 2022 for sore throat. She reports she initially felt improved with treatment with prednisone then all symptoms returned. Currently with pain in her side that is worse with coughing and eating. Located beneath her ribs it feels. Cough is productive. Occasionally purulent. Can cough so much that she vomits. Sore throat has returned. She is noting wheezing. No shortness of breath. No ear pain. Frontal and maxillary headache. Perceived fever and chills but no elevation at home. Review of Systems Constitutional: Positive for chills, fatigue and fever (perceived). HENT: Positive for rhinorrhea, sinus pressure and sore throat. Respiratory: Positive for cough and wheezing. Cardiovascular: Negative. Endocrine: Negative. Objective BP 110/80 Pulse 83 Temp 36.6 ?C (97.9 ?F) Resp 16 Wt 68 kg (150 lb) LMP 11/18/2019 SpO2 100% BMI 21.83 kg/m? Physical Exam General appearance: tired/ill appearing, alert, cooperative, pleasant, in no acute distress Head: Normocephalic Eyes: conjunctiva/corneas normal Ears: R TM - not visualized secondary to cerumen, L TM - not visualized secondary to cerumen Nose: clear rhinorrhea, mucosa erythematous and swollen Oropharynx: moist without lesions, mild erythema to GPA Neck: supple and small, benign anterior cervical nodes bilaterally Heart: regular rate and rhythm, without murmur Lungs: clear to auscultation, without rales or wheeze, good air exchange ALLERGIES Allergen Reactions Wellbutrin [Bupropi* Vomiting Wellbutrin [Bupropi* Other: See Comments Numbness in legs Medications albuterol HFA (PROAIR HFA) 90 mcg/actuation inhaler Inhale 2 Puffs as instructed every 4 hours as needed for wheezing/shortness of breath. benzonatate (TESSALON PERLES) 100 mg capsule Take 1-2 capsules by mouth three times daily as needed for cough. amoxicillin (AMOXIL) 500 mg capsule Take 2 capsules by mouth three times daily for 10 days. Take with food azithromycin (ZITHROMAX Z-MISTY) 250 mg tablet Take 2 tablets day one, then, 1 tablet daily until gone. Take with food omeprazole (PRILOSEC) 20 mg capsule Take 1 capsule by mouth daily before breakfast. for abdominal pain, nausea meloxicam (MOBIC) 15 mg tablet Take 1 tablet by mouth once daily as needed. for pain. Take with food. fluticasone (FLONASE) 50 mcg/actuation nasal spray Use 1-2 Sprays in each nostril once daily. Rinse mouth after use. For nasal drainage and congestion rizatriptan (MAXALT) 10 mg tablet Take 1 tablet by mouth as needed. May repeat in 2 hours if needed (Patient not taking: Reported on 08/02/2022) PAST MEDICAL HISTORY Diagnosis Date Acne Asthma Depression Kidney stone Migraine with aura Social History Tobacco Use Smoking status: Never Smokeless tobacco: Never Vaping Use Vaping Use: Never used Substance Use Topics Alcohol use: Yes Drug use: No Component Latest Ref Rng AND Units 12/10/2021 07/29/2022 08/02/2022 WBC 3.70 - 11.00 k/uL 8.53 RBC 3.90 - 5.20 m/uL 4.26 Hemoglobin 11.5 - 15.5 g/dL 13.8 Hematocrit 36.0 - 46.0 % 41.0 MCV 80.0 - 100.0 fL 96.2 MCH 26.0 - 34.0 pg 32.4 MCHC 30.5 - 36.0 g/dL 33.7 RDW-CV 11.5 - 15.0 % 11 (more content not included)... [facility] 08-26-2022 Miscellaneous Notes Addended by: MARIALUISA VERDUGO on: 08/26/2022 08:33 AM Modules accepted: Orders documented in this encounter [facility] 08-26-2022 History of Presen t illness Narrative SUBJECTIVE: MENINGOCOCCAL B: Consider based on risk(2 of 2 - Risk Bexsero 2-dose series) due on 2013 INFLUENZA(1) due on 02/17/2022 PAP TESTING due on 04/08/2022 DEPRESSION ASSESSMENT Never done HPI Fallon Bravo is a 26 year old female. PMH significant for ACTIVE PROBLEM LIST Acne Irregular Menses Chronic Daily Headache Acute Bronchitis Acute Pharyngitis Acute Frontal Sinusitis Acute Maxillary Sinusitis Chest Congestion Cough Sore Throat Bilateral Acute Serous Otitis Media HPI excerpted from previous visit: She reports palpitations off and on for about 1 year. Used to happen just now and then. Happening more frequently now, now about once weekly. She notes having COVID in June 2021, palpitations predated this. Onset: No known cause for onset Character: Feels like rapid or extra beats. Feels like strong beats on occasion. Lasts up to 20 minutes. No associated symptoms. Frequency: Happen about once a week Exertional: Can occur after exercise At rest: : Can occur with rest Aggravating: Cannot identify any routine causes Alleviating: With rest Associated symptoms: None reported No reported change in functional capacity, no limitations reported She notes using allergy medicine but no pseudoephedrine products. Cut out caffeine did not seem to make much difference. No report of alcohol intake. Lab results and ZIO were in acceptable range. Presents today regarding fatigue. Since last seen she had a visit in [facility] March 15, 2022 for sinusitis. Seen July 29, 2022 for pharyngitis. Seen August 02, 2022 for sore throat. She reports she initially felt improved with treatment with prednisone then all symptoms returned. Currently with pain in her side that is worse with coughing and eating. Located beneath her ribs it feels. Cough is productive. Occasionally purulent. Can cough so much that she vomits. Sore throat has returned. She is noting wheezing. No shortness of breath. No ear pain. Frontal and maxillary headache. Perceived fever and chills but no elevation at home. Review of Systems Constitutional: Positive for chills, fatigue and fever (perceived). HENT: Positive for rhinorrhea, sinus pressure and sore throat. Respiratory: Positive for cough and wheezing. Cardiovascular: Negative. Endocrine: Negative. Objective BP 110/80 Pulse 83 Temp 36.6 C (97.9 F) Resp 16 Wt 68 kg (150 lb) LMP 11/18/2019 SpO2 100% BMI 21.83 kg/m Physical Exam General appearance: tired/ill appearing, alert, cooperative, pleasant, in no acute distress Head: Normocephalic Eyes: conjunctiva/corneas normal Ears: R TM - not visualized secondary to cerumen, L TM - not visualized secondary to cerumen Nose: clear rhinorrhea, mucosa erythematous and swollen Oropharynx: moist without lesions, mild erythema to GPA Neck: supple and small, benign anterior cervical nodes bilaterally Heart: regular rate and rhythm, without murmur Lungs: clear to auscultation, without rales or wheeze, good air exchange ALLERGIES Allergen Reactions Wellbutrin [Bupropi* Vomiting Wellbutrin [Bupropi* Other: See Comments Numbness in legs Medications albuterol HFA (PROAIR HFA) 90 mcg/actuation inhaler Inhale 2 Puffs as instructed every 4 hours as needed for wheezing/shortness of breath. benzonatate (TESSALON PERLES) 100 mg capsule Take 1-2 capsules by mouth three times daily as needed for cough. amoxicillin (AMOXIL) 500 mg capsule Take 2 capsules by mouth three times daily for 10 days. Take with food azithromycin (ZITHROMAX Z-MISTY) 250 mg tablet Take 2 tablets day one, then, 1 tablet daily until gone. Take with food omeprazole (PRILOSEC) 20 mg capsule Take 1 capsule by mouth daily before breakfast. for abdominal pain, nausea meloxicam (MOBIC) 15 mg tablet Take 1 tablet by mouth once daily as needed. for pain. Take with food. fluticasone (FLONASE) 50 mcg/actuation nasal spray Use 1-2 Sprays in each nostril once daily. Rinse mouth after use. For nasal drainage and congestion rizatriptan (MAXALT) 10 mg tablet Take 1 tablet by mouth as needed. May repeat in 2 hours if needed (Patient not taking: Reported on 08/02/2022) PAST MEDICAL HISTORY Diagnosis Date Acne Asthma Depression Kidney stone Migraine with aura Social History Tobacco Use Smoking status: Never Smokeless tobacco: Never Vaping Use Vaping Use: Never used Substance Use Topics Alcohol use: Yes Drug use: No Component Latest Ref Rng & Units 12/10/2021 07/29/2022 08/02/2022 WBC 3.70 - 11.00 k/uL 8.53 RBC 3.90 - 5.20 m/uL 4.26 Hemoglobin 11.5 - 15.5 g/dL 13.8 Hematocrit 36.0 - 46.0 % 41.0 MCV 80.0 - 100.0 fL 96.2 MCH 26.0 - 34.0 pg 32.4 MCHC 30.5 - 36.0 g/dL 33.7 RDW-CV 11.5 - 15.0 % 11.7 Platelet Count 150 - 400 k/uL 348 MPV 9.0 - 12.7 fL 9.7 Neut% % 59.5 Abs Neut (ANC) 1.45 - 7.50 k/uL 5.07 Lymph% % 28.8 Abs Lymph 1.00 - 4.00 k/uL 2.46 Payette% % 7.2 Abs Payette <0.87 k/uL 0.61 Eosin% % 3.5 Abs Eosin <0.46 k/uL 0.30 Baso% % 0.8 Abs Baso <0.11 k/uL 0.07 Immature Gran % % 0.2 IMMATURE GRANS (ABS) <0.10 k/uL <0.03 NRBC /100 WBC 0.0 Absolute nRBC <0.01 k/uL <0.01 DTYPE Auto Protein, Total 6.3 - 8.0 g/dL 7.4 Albumin 3.9 - 4.9 g/dL 4.9 Calcium 8.5 - 10.2 mg/dL 10.1 Bilirubin, Total 0.2 - 1.3 mg/dL 0.9 Alkaline Phosphatase 34 - 123 U/L 64 AST 13 - 35 U/L 25 ALT 7 - 38 U/L 13 Glucose 74 - 99 mg/dL 76 BUN 7 - 21 mg/dL 11 Creatinine 0.58 - 0.96 mg/dL 0.79 Sodium 136 - 144 mmol/L 138 Potassium 3.7 - 5.1 mmol/L 4.3 Chloride 97 - 105 mmol/L 102 CO2 22 - 30 mmol/L 25 Anion Gap 9 - 18 mmol/L 11 eGFR >=60 mL/min/1.73m 108 COVID 19 Result See comment Not detected Influenza A PCR Not Detected Not detected Influenza B PCR Not Detected Not detected Strep A (POCT) Negative Negative Procedural Control Valid TSH 0.270 - 4.200 mIU/L 0.851 SARS-CoV-2 NOT DETECTED NOT DETECTED o 11/2021 Patient had a min HR of 51 bpm, max HR of 163 bpm, and avg HR of 88 bpm. Predominant underlying rhythm was Sinus Rhythm. Isolated SVEs were rare (<1.0%), SVE Couplets were rare (<1.0%), and SVE Triplets were rare (<1.0%). Isolated VEs were rare (<1.0%), and no VE Couplets or VE Triplets were present. ASSESSMENT/PLAN: 1. Acute cough - ICD9: 786.2, ICD10: R05.1 (primary diagnosis) - XR CHEST 2V FRONTAL/LAT - BENZONATATE 100 MG CAPSULE - AMOXICILLIN 500 MG CAPSULE - AZITHROMYCIN 250 MG TABLET 2. Rib pain on left side - ICD9: 786.50, ICD10: R07.81 - XR CHEST 2V FRONTAL/LAT - BENZONATATE 100 MG CAPSULE - AMOXICILLIN 500 MG CAPSULE - AZITHROMYCIN 250 MG TABLET - MELOXICAM 15 MG TABLET 3. Gastroesophageal reflux disease, unspecified whether esophagitis present - ICD9: 530.81, ICD10: K21.9 - OMEPRAZOLE 20 MG CAPSULE,DELAYED RELEASE 4. Nasal drainage - ICD9: 478.19, ICD10: J34.89 - FLUTICASONE PROPIONATE 50 MCG/ACTUATION NASAL SPRAY,SUSPENSION She notes more than 3 weeks of upper respiratory symptoms initially improved with treatment with prednisone but now recurring and noting nasal drainage and congestion, difficult to control cough, rib pain, GERD symptoms, headache and sore throat. Will complete chest x-ray to exclude CAP, will treat as such for now. 1 week recheck. Marialuisa Verdugo APRN.SARAH Medical Decision Making: Problems: Low: Acute, uncomplicated illness or injury Data: Unique test(s) ordered: 1 Risk: Moderate: Drug management Medical Decision Making Level: 3 - Low documented in this encounter [facility] 08-02-2022 Note HNO ID: [id number] Author: Omar Ramirez APRN.FRONT SIGHT ATTACHER Service: ? Author Type: Nurse Practitioner Type: Progress Notes Filed: 08/02/2022 6:34 PM Note Text: Subjective HPI HPI Fallon Bravo is a 26 year old female who presents today for CC of st, cough, fatigue, chills. This started 2 days ago. Has tried otc medication for relief. Symptoms are worsened by nothing. Risk factors sick exposures at home and school. Remote hx of asthma. PAST MEDICAL HISTORY Diagnosis Date Acne Asthma Depression Kidney stone Migraine with aura PAST SURGICAL HISTORY Procedure Laterality Date KNEE SURGERY HX OPEN TREATMENT PATELLAR DISLOCATION 06/2011, 2013 UNSPECIFIED ORAL SURGERY PROCEDURE, BY REPORT [place] ALLERGIES Wellbutrin [Bupropion Hcl] and Wellbutrin [Bupropion Hcl] MEDICATIONS albuterol HFA (PROAIR HFA) 90 mcg/actuation inhaler Inhale 2 Puffs as instructed every 4 hours as needed for wheezing/shortness of breath. carbamide peroxide (DEBROX) 6.5 % otic solution Use 5 Drops in both ears twice daily. ibuprofen (MOTRIN) 200 mg tablet Take 200 mg by mouth every 6 hours as needed. cyclobenzaprine (FLEXERIL) 10 mg tablet Take 1 tablet by mouth at bedtime as needed for Muscle Spasm (may make drowsy). (Patient not taking: Reported on 08/02/2022) rizatriptan (MAXALT) 10 mg tablet Take 1 tablet by mouth as needed. May repeat in 2 hours if needed (Patient not taking: Reported on 08/02/2022) escitalopram oxalate (LEXAPRO) 20 mg tablet Take 1 tablet by mouth once daily. (Patient not taking: Reported on 08/02/2022) Norethindrone, Contraceptive, 0.35 mg tablet Take 1 tablet by mouth once daily. (Patient not taking: Reported on 08/02/2022) FAMILY HISTORY Problem Relation Age of Onset Hypertension Mother other (tia) Mother Asthma Father other (AAA) Maternal Grandmother Hypertension Maternal Grandfather Diabetes Paternal Grandmother No Family History No Family History Colon CAncer/Polyps Social History Tobacco Use Smoking status: Never Smokeless tobacco: Never Vaping Use Vaping Use: Never used Substance Use Topics Alcohol use: Yes Drug use: No Review of Systems Constitutional: Positive for chills and malaise/fatigue. Negative for fever. HENT: Positive for congestion and sore throat. Negative for ear pain and nosebleeds. Respiratory: Positive for cough. Negative for shortness of breath and wheezing. Cardiovascular: Negative for chest pain. Gastrointestinal: Positive for vomiting. Negative for abdominal pain and diarrhea. Musculoskeletal: Negative for neck pain. Skin: Negative for itching and rash. Objective Blood pressure 128/82, pulse 94, temperature 36.7 ?C (98 ?F), resp. rate 18, weight 68.9 kg (152 lb), last menstrual period 11/18/2019, SpO2 98 %. Physical Exam Constitutional: General: She is not in acute distress. Appearance: She is ill-appearing (mild). She is not toxic-appearing or diaphoretic. HENT: Head: Normocephalic and atraumatic. Nose: Nose normal. Mouth/Throat: Pharynx: Uvula midline. Posterior oropharyngeal erythema present. No pharyngeal swelling, oropharyngeal exudate or uvula swelling. Eyes: General: Lids are normal. No scleral icterus. Right eye: No discharge. Left eye: No discharge. Conjunctiva/sclera: Conjunctivae normal. Pupils: Pupils are equal, round, and reactive to light. Neck: Trachea: Trachea normal. Cardiovascular: Rate and Rhythm: Normal rate and regular rhythm. Heart sounds: Normal heart sounds. Pulmonary: Effort: Pulmonary effort is normal. Breath sounds: Wheezing (fine, scattered, clear with cough) present. No decreased breath sounds, rhonchi or rales. Musculoskeletal: Cervical back: Normal range of motion and neck supple. Lymphadenopathy: Cervical: No cervical adenopathy. Right cervical: No superficial cervical adenopathy. Left cervical: No superficial cervical adenopathy. Skin: Findings: No rash. Neurological: Mental Status: She is alert and oriented to person, place, and time. ASSESSMENT/PLAN: 1. URI, acute - ICD9: 465.9, ICD10: J06.9 (primary diagnosis) - Discussed viral etiology and rationale for treatment. - Symptomatic treatment with prn analgesia - Supportive care with fluids and rest - Follow up in 3-5 days if symptoms persist or sooner if worsening of symptoms - PREDNISONE 20 MG TABLET 2. Sore throat - ICD9: 462, ICD10: J02.9 Negative, viral - STREP A MOLECULAR (POC) Omar Ramirez APRN.JULIO CESAR [facility] 08-02-2022 Miscellaneous Notes Addended by: SATINDER SÁNCHEZ on: 08/02/2022 07:30 PM Modules accepted: Orders, SmartSet documented in this encounter [facility] 08-02-2022 History of Presen t illness Narrative Subjective HPI HPI Fallon Bravo is a 26 year old female who presents today for CC of st, cough, fatigue, chills. This started 2 days ago. Has tried otc medication for relief. Symptoms are worsened by nothing. Risk factors sick exposures at home and school. Remote hx of asthma. PAST MEDICAL HISTORY Diagnosis Date Acne Asthma Depression Kidney stone Migraine with aura PAST SURGICAL HISTORY Procedure Laterality Date KNEE SURGERY HX OPEN TREATMENT PATELLAR DISLOCATION 06/2011, 2013 UNSPECIFIED ORAL SURGERY PROCEDURE, BY REPORT [place] teeth ALLERGIES Wellbutrin [Bupropion Hcl] and Wellbutrin [Bupropion Hcl] MEDICATIONS albuterol HFA (PROAIR HFA) 90 mcg/actuation inhaler Inhale 2 Puffs as instructed every 4 hours as needed for wheezing/shortness of breath. carbamide peroxide (DEBROX) 6.5 % otic solution Use 5 Drops in both ears twice daily. ibuprofen (MOTRIN) 200 mg tablet Take 200 mg by mouth every 6 hours as needed. cyclobenzaprine (FLEXERIL) 10 mg tablet Take 1 tablet by mouth at bedtime as needed for Muscle Spasm (may make drowsy). (Patient not taking: Reported on 08/02/2022) rizatriptan (MAXALT) 10 mg tablet Take 1 tablet by mouth as needed. May repeat in 2 hours if needed (Patient not taking: Reported on 08/02/2022) escitalopram oxalate (LEXAPRO) 20 mg tablet Take 1 tablet by mouth once daily. (Patient not taking: Reported on 08/02/2022) Norethindrone, Contraceptive, 0.35 mg tablet Take 1 tablet by mouth once daily. (Patient not taking: Reported on 08/02/2022) FAMILY HISTORY Problem Relation Age of Onset Hypertension Mother other (tia) Mother Asthma Father other (AAA) Maternal Grandmother Hypertension Maternal Grandfather Diabetes Paternal Grandmother No Family History No Family History Colon CAncer/Polyps Social History Tobacco Use Smoking status: Never Smokeless tobacco: Never Vaping Use Vaping Use: Never used Substance Use Topics Alcohol use: Yes Drug use: No Review of Systems Constitutional: Positive for chills and malaise/fatigue. Negative for fever. HENT: Positive for congestion and sore throat. Negative for ear pain and nosebleeds. Respiratory: Positive for cough. Negative for shortness of breath and wheezing. Cardiovascular: Negative for chest pain. Gastrointestinal: Positive for vomiting. Negative for abdominal pain and diarrhea. Musculoskeletal: Negative for neck pain. Skin: Negative for itching and rash. Objective Blood pressure 128/82, pulse 94, temperature 36.7 C (98 F), resp. rate 18, weight 68.9 kg (152 lb), last menstrual period 11/18/2019, SpO2 98 %. Physical Exam Constitutional: General: She is not in acute distress. Appearance: She is ill-appearing (mild). She is not toxic-appearing or diaphoretic. HENT: Head: Normocephalic and atraumatic. Nose: Nose normal. Mouth/Throat: Pharynx: Uvula midline. Posterior oropharyngeal erythema present. No pharyngeal swelling, oropharyngeal exudate or uvula swelling. Eyes: General: Lids are normal. No scleral icterus. Right eye: No discharge. Left eye: No discharge. Conjunctiva/sclera: Conjunctivae normal. Pupils: Pupils are equal, round, and reactive to light. Neck: Trachea: Trachea normal. Cardiovascular: Rate and Rhythm: Normal rate and regular rhythm. Heart sounds: Normal heart sounds. Pulmonary: Effort: Pulmonary effort is normal. Breath sounds: Wheezing (fine, scattered, clear with cough) present. No decreased breath sounds, rhonchi or rales. Musculoskeletal: Cervical back: Normal range of motion and neck supple. Lymphadenopathy: Cervical: No cervical adenopathy. Right cervical: No superficial cervical adenopathy. Left cervical: No superficial cervical adenopathy. Skin: Findings: No rash. Neurological: Mental Status: She is alert and oriented to person, place, and time. ASSESSMENT/PLAN: 1. URI, acute - ICD9: 465.9, ICD10: J06.9 (primary diagnosis) - Discussed viral etiology and rationale for treatment. - Symptomatic treatment with prn analgesia - Supportive care with fluids and rest - Follow up in 3-5 days if symptoms persist or sooner if worsening of symptoms - PREDNISONE 20 MG TABLET 2. Sore throat - ICD9: 462, ICD10: J02.9 Negative, viral - STREP A MOLECULAR (POC) Omar Ramirez APRN.JULIO CESAR documented in this encounter [facility] 12-10-2021 Nurse Note EVENT MONITOR DISPOSABLE PATCH INSTRUCTIONS Patient Name: Fallon Bravo [facility] Number: [id number] Skin prepped and cleansed with alcohol Patch secured to prepped area Monitor Activated Serial #: [id number] Patient Instructed: 1.) Prescribed order timeframe 2.) Bathing guidelines 3.) Usage of event button and diary documentation 4.) Return of monitor at the end of prescribed order 5.) Call with problems [phone] or [phone] ext. [phone] Patient expresses a good understanding of instructions Lupe Patton LPN documented in this encounter [facility] 12-10-2021 History of Presen t illness Narrative SUBJECTIVE: MENINGOCOCCAL B: Consider based on risk(2 of 2 - Risk Bexsero 2-dose series) due on 2013 GC (GONORRHEA) SCREENING (18-24) due on 11/27/2021 DEPRESSION SCREENING due on 11/27/2021 CHLAMYDIA SCREENING (18-24) due on 11/27/2021 PAP TESTING due on 04/08/2022 HPI Fallon Bravo is a 25 year old female. PMH significant for ACTIVE PROBLEM LIST Acne Irregular Menses Chronic Daily Headache Acute Bronchitis Acute Pharyngitis Acute Frontal Sinusitis Acute Maxillary Sinusitis Chest Congestion Cough Sore Throat Bilateral Acute Serous Otitis Media She reports palpitations off and on for about 1 year. Used to happen just now and then. Happening more frequently now, now about once weekly. She notes having COVID in June 2021, palpitations predated this. Onset: No known cause for onset Character: Feels like rapid or extra beats. Feels like strong beats on occasion. Lasts up to 20 minutes. No associated symptoms. Frequency: Happen about once a week Exertional: Can occur after exercise At rest: : Can occur with rest Aggravating: Cannot identify any routine causes Alleviating: With rest Associated symptoms: None reported No reported change in functional capacity, no limitations reported She notes using allergy medicine but no pseudoephedrine products. Cut out caffeine did not seem to make much difference. No report of alcohol intake. Review of Systems Constitutional: Negative. Respiratory: Negative. Cardiovascular: Negative. Endocrine: Negative. Objective BP 110/68 Pulse 98 Resp 16 Wt 63.5 kg (140 lb) LMP 11/18/2019 SpO2 100% BMI 20.38 kg/m Physical Exam Vitals and nursing note reviewed. Constitutional: Appearance: Normal appearance. HENT: Head: Normocephalic and atraumatic. Eyes: Conjunctiva/sclera: Conjunctivae normal. Neck: Thyroid: No thyroid mass or thyromegaly. Vascular: Normal carotid pulses. No JVD. Cardiovascular: Rate and Rhythm: Normal rate and regular rhythm. Pulses: Carotid pulses are 2+ on the right side and 2+ on the left side. Radial pulses are 2+ on the right side and 2+ on the left side. Heart sounds: Normal heart sounds. Pulmonary: Effort: Pulmonary effort is normal. Breath sounds: Normal breath sounds. Abdominal: General: Bowel sounds are normal. Palpations: Abdomen is soft. Musculoskeletal: Right lower leg: No edema. Left lower leg: No edema. Skin: General: Skin is warm and dry. Neurological: General: No focal deficit present. Mental Status: She is alert and oriented to person, place, and time. ALLERGIES Allergen Reactions Wellbutrin [Bupropi* Vomiting Wellbutrin [Bupropi* Other: See Comments Numbness in legs Medications cyclobenzaprine (FLEXERIL) 10 mg tablet Take 1 tablet by mouth at bedtime as needed for Muscle Spasm (may make drowsy). albuterol HFA (PROAIR HFA) 90 mcg/actuation inhaler Inhale 2 Puffs as instructed every 4 hours as needed for wheezing/shortness of breath. rizatriptan (MAXALT) 10 mg tablet Take 1 tablet by mouth as needed. May repeat in 2 hours if needed carbamide peroxide (DEBROX) 6.5 % otic solution Use 5 Drops in both ears twice daily. escitalopram oxalate (LEXAPRO) 20 mg tablet Take 1 tablet by mouth once daily. cetirizine-pseudoephedrine (ZYRTEC-D) 5-120 mg per tablet Take 1 tablet by mouth twice daily as needed. Norethindrone, Contraceptive, 0.35 mg tablet Take 1 tablet by mouth once daily. ibuprofen (MOTRIN) 200 mg tablet Take 200 mg by mouth every 6 hours as needed. PAST MEDICAL HISTORY Diagnosis Date Acne Asthma Depression Kidney stone Migraine with aura Social History Tobacco Use Smoking status: Never Smoker Smokeless tobacco: Never Used Vaping Use Vaping Use: Never used Substance Use Topics Alcohol use: Yes Drug use: No ASSESSMENT/PLAN: 1. Palpitations - ICD9: 785.1, ICD10: R00.2 Recommend sufficient fluid intake, avoidance of caffeine and alcohol. We will check lab work today. EKG in office today showed NSR, no ischemic changes or ectopy noted 88 bpm Zio ordered. - ECG COMPLETE - TSH BLD - COMP METABOLIC PANEL - CBC + DIFF - CONSULT TO CARDIOLOGY - OUTSIDE VENDOR CARDIAC OUTPATIENT EXTENDED RHYTHM RECORDING (WITHOUT TELEMETRY) Marialuisa Verdugo APRN.CNS Medical Decision Making: Problems: Moderate: New problem with uncertain prognosis Data: Unique test(s) ordered: 3+ Medical Decision Making Level: 4 - Moderate documented [facility] URI, acute- Primary Acute upper respiratory infections of unspecified site Sore throat Acute pharyngitis Viral illness Unspecified viral infection, in conditions classified elsewhere and of unspecified site [facility] Acute cough- Primary Rib pain on left side Chest pain, unspecified Gastroesophageal reflux disease, unspecified whether esophagitis present Nasal drainage Other diseases of nasal cavity and sinuses [facility] Diagnosis Mild intermittent asthmatic bronchitis with acute exacerbation- Primary Persistent cough for 3 weeks or longer [facility] Diagnosis Persistent cough for 3 weeks or longer Mild intermittent asthmatic bronchitis with acute exacerbation [facility] Diagnosis Sore throat- Primary Acute pharyngitis URI, acute Acute upper respiratory infections of unspecified site documented in [facility] Summary Purpose Family History No Family History Records FoundNo Family History Records FoundNo Family History Records FoundNo Family History Records FoundNo Family History Records FoundNo Family History Records Found Advance Directives No Advanced Directives Records FoundDocuments on File Type Date Recorded Patient Sander Operator Expl anation Advance Directive(s) 10/25/2020 5:33 PM Reason for Referral Specialty Diagnoses / Procedures Referred By Contac t Referred To Contact Cardiology Diagnoses Palpitations Procedures CONSULT TO CARDIOLOGY OFFICE/OUTPATIENT [facility] 60-74 MINUTES Marialuisa Verdugo, INTERVENTIONAL CARDIOLOGIST.PRODUCT MARKETING EXECUTIVE [address] [place] [address] Referral ID Status Reason Start Date Expiration Date Visits Requested Visits Authorized [id number] Authorized PCP Requested Referral 12/10/2021 12/10/2022 1 1 Specialty Diagnoses / Procedures Referred By Contac t [facility] Diagnoses Palpitations Procedures ECG COMPLETE ECG ROUTINE ECG W/LEAST 12 LDS W/I&R Marialuisa Verdugo, INTERVENTIONAL CARDIOLOGIST.PRODUCT MARKETING EXECUTIVE [address] [place] [address] [facility] [address] [place] [address] Referral ID Status Reason Start Date Expiration Date V isits Requested Visits Authorized [id number] Closed Auto-Generate d Referral 12/10/2021 12/10/2022 1 1 Health Concerns Infection Onset Date Last Indicated Resolved Time COVID-19 Rule-Out 08/02/2022 08/02/2022 Additional Source Comments INFORMATION SOURCE (unrecogn ized section and content) DATE CREATED AUTHOR AUTHOR'S ORGANIZ ATION 10/16/2018 [facility] DATE CREATED AUTHOR AUTHOR'S ORGANIZ ATION 10/21/2018 [facility] DATE CREATED AUTHOR AUTHOR'S ORGANIZ ATION 11/03/2020 [facility] DATE CREATED AUTHOR AUTHOR'S ORGANIZ ATION 04/15/2023 [facility] DATE CREATED AUTHOR AUTHOR'S ORGANIZ ATION 06/03/2023 [facility] Source Comments (unrecognize d section and content) In the event this informatio n is protected by the Federal Confidentiality of Alcohol and Drug Abuse Patient Records regulations: The Federal rules restrict any use of the information to criminally investigate or prosecute any alcohol or drug abuse patient.[facility] event this information is protected by the Federal Confidentiality of Alcohol and Drug Abuse Patient Records regulations: The Federal rules restrict any use of the information to criminally investigate or prosecute any alcohol or drug abuse patient.[facility] the event this information is protected by the Federal Confidentiality of Alcohol and Drug Abuse Patient Records regulations: The Federal rules restrict any use of the information to criminally investigate or prosecute any alcohol or drug abuse patient.[facility] the event this information is protected by the Federal Confidentiality of Alcohol and Drug Abuse Patient Records regulations: The Federal rules restrict any use of the information to criminally investigate or prosecute any alcohol or drug abuse patient.[facility] the event this information is protected by the Federal Confidentiality of Alcohol and Drug Abuse Patient Records regulations: The Federal rules restrict any use of the information to criminally investigate or prosecute any alcohol or drug abuse patient.[facility] the event this information is protected by the Federal Confidentiality of Alcohol and Drug Abuse Patient Records regulations: The Federal rules restrict any use of the information to criminally investigate or prosecute any alcohol or drug abuse patient.[facility] Reason for Visit (unrecogniz ed section and content) Reason Comments Sore Throat headache, cough, fat igue, bodyaches and chills x 1 week Reason Comments Fatigue Flank Pain L side Reason Comments Recheck 1 week follow up for cough Reason Comments Refill Request Reason Comments Sore Throat Sxs started 2 wks ag o [facility] zpack she did not take it, mucus feeling worse agin the worst part is sore throat Care Teams (unrecognized sec tion and content) Finishing Machine Tender Relationship Specialty Start Date End Date Raffi Faulkner MD [address] [place] [address] PCP - General Internal Medicine 07/29/19 [address] [place] [address] Pediatrics 02/29/16 Finishing Machine Tender Relationship Specialty Start Date End Date Raffi Faulkner MD [address] [place] [address] PCP - General Internal Medicine 07/29/19 [address] [place] [address] Pediatrics 02/29/16 Finishing Machine Tender Relationship Specialty Start Date End Date Raffi Faulkner MD [address] [place] [address] PCP - General Internal Medicine 07/29/19 [address] [place] [phone] Pediatrics 02/29/16 Finishing Machine Tender Relationship Specialty Start Date End Date Raffi Faulkner MD [address] [place] [address] PCP - General Internal Medicine 07/29/19 [address] [place] [address] Pediatrics 02/29/16 Finishing Machine Tender Relationship Specialty Start Date End Date Raffi Faulkner MD [address] [place] [address] PCP - General Internal Medicine 07/29/19 Moriah [address] [place] [address] Pediatrics 02/29/16 FOR RECORDS PERTAINING TO PATIENTS WHO ARE OR HAVE BEEN ENROLLED IN A CHEMICAL DEPENDENCY/SUBSTANCEABUSE PROGRAM, SOME INFORMATION MAY BE OMITTED. This clinical summary was aggregated from multiple sources. Caution should be exercised in using it in the provision of clinical care. This summary normalizes information from multiple sources, and as a consequence, information in this document may materially change the coding, format and clinical context of patient data. In addition, data may be omitted in some cases. CLINICAL DECISIONS SHOULD BE BASED ON THE PRIMARY CLINICAL RECORDS. [employer] provides no warranty or guarantee of the accuracy or completeness of information in this document.
[2023-08-07 13:03] LABS: Absolute Lymphocyte Count 2.02 X10^3/uL (0.83-4.51); Absolute Neutrophil Count 8.7 X10^3/uL (2.0-7.7); Basophil# 0.05 X10^3/uL; Basophil% 0.4 % (0-1); Eosinophils% 1.7 % (0-5); Hematocrit 33.7 % (37-47); Hemoglobin 11.1 g/dL (12.0-15.0); Lymphocyte # 2.02 X10^3/ul (0.83-4.51); Lymphocyte % 17.5 % (19-41); Mean Corp Hgb Conc 32.9 g/dL (32-36); Mean Corpuscular Hgb 31.6 pg (27.0-32.0); Mean Platelet Vol. 9.5 fl (6.2-12.0); Monocyte# 0.52 X10^3/uL; Monocyte% 4.5 % (0-10); NRBC Flagged by Analyzer 0 % (0-5); Neutrophil # 8.66 X10^3/uL (2.7-7.7); Neutrophil % 75.4 % (47-70); Platelet Count 312 K/mm3 (150-450); RBC Distribution Width CV 12.1 % (11.6-14.6); RBC Distribution Width SD 41.7 fl (35.1-43.9); Red Blood Count 3.51 M/mm3 (4.2-5.4); White Blood Count 11.5 K/mm3 (4.4-11.0)
[2023-08-07 13:27] LABS: Glucose Challenge Gest 1H 50g 129 mg/dL (70-140)
[2023-08-07 13:58] LABS: HIV - WCH Non-Reactive (Nonreactive); Syphilis Antibodies Non-reactive
== END | disposition home or self-care (01) ==
LOC: LAB 12:26
PROVIDERS: PCP Internal Medicine; Referring Provider Obstetrics & Gynecology; Visit Provider Obstetrics & Gynecology
DX: O09.90 Supervision of high risk pregnancy, unspecified, unspecified trimester (principal); Z13.1 Encounter for screening for diabetes mellitus; Z3A.00 Weeks of gestation of pregnancy not specified
CPT/HCPCS: 36415; 82950; 85025; 86703; 86780

== ENCOUNTER → 2023-09-22 | Outpatient (CLI) | payer OTHER, SELFPAY | END | disposition home or self-care (01) | LOC: LABSPEC 16:56 | PROVIDERS: PCP Internal Medicine; Referring Provider Obstetrics & Gynecology; Visit Provider Obstetrics & Gynecology | DX: O09.90 Supervision of high risk pregnancy, unspecified, unspecified trimester (principal); Z3A.00 Weeks of gestation of pregnancy not specified | CPT/HCPCS: 87081 ==

== ENCOUNTER → 2023-10-06 | Outpatient (CLI) | payer OTHER, SELFPAY ==
[2023-10-06 16:26] LABS: ROM Internal Control Test YES-OK TO RESULT pt. (Internal QC); ROM Patient Test Negative (Negative); Record Kit Lot#, ROM+ K1409
== END | disposition home or self-care (01) ==
PROVIDERS: PCP Internal Medicine; Referring Provider Advanced Practice Midwife; Visit Provider Advanced Practice Midwife
DX: O42.90 Premature rupture of membranes, unspecified as to length of time between rupture and onset of labor, unspecified weeks of gestation (principal); Z3A.00 Weeks of gestation of pregnancy not specified
CPT/HCPCS: 84112

== ENCOUNTER 2023-10-19 23:18 | Inpatient (IN) | payer OTHER, SELFPAY ==
[2023-10-19 20:46] VITALS: BMI 28.0
[2023-10-19 20:54] VITALS: BP 132/83; PULSE 98; O2SAT 98
[2023-10-19 23:12] VITALS: BP 137/75; PULSE 84
[2023-10-19 23:48] LABS: Absolute Lymphocyte Count 2.57 X10^3/uL (0.83-4.51); Absolute Neutrophil Count 10.5 X10^3/uL (2.0-7.7); Basophil# 0.05 X10^3/uL; Basophil% 0.4 % (0-1); Eosinophils% 0.7 % (0-5); Hematocrit 30.9 % (37-47); Hemoglobin 10.2 g/dL (12.0-15.0); Lymphocyte # 2.57 X10^3/ul (0.83-4.51); Lymphocyte % 18.1 % (19-41); Mean Corpuscular Hgb 31.1 pg (27.0-32.0); Mean Corpuscular Volume 94.2 fL (81-99); Mean Platelet Vol. 10.4 fl (6.2-12.0); Monocyte# 0.89 X10^3/uL; Monocyte% 6.3 % (0-10); NRBC Flagged by Analyzer 0 % (0-5); Neutrophil # 10.53 X10^3/uL (2.7-7.7); Neutrophil % 74.1 % (47-70); Platelet Count 310 K/mm3 (150-450); RBC Distribution Width CV 12.5 % (11.6-14.6); RBC Distribution Width SD 42.7 fl (35.1-43.9); Red Blood Count 3.28 M/mm3 (4.2-5.4); White Blood Count 14.2 K/mm3 (4.4-11.0)
[2023-10-20] VITALS (66 sets, daily range): BP systolic 98–133; BP diastolic 58–85; PULSE 67–89; RESP 14–16; TEMP 36.2–37.2; O2SAT 82–100
[2023-10-20] MEDS: Lactated Ringers 1,000 ML 200 ML IV ×2 (00:19→04:49)
[2023-10-20] MEDS: LACTATED RINGERS 500 ML 999 ML IV (00:21)
[2023-10-20] MEDS: Ondansetron 4 MG/2 ML Vial IV ×2 (00:30→07:42)
[2023-10-20 00:54] LABS: Syphilis Antibodies Non-reactive
[2023-10-20] MEDS: fentaNYL-bupivacaine (epidural) 100 ML BAG EPIDURAL ×2 (01:10→04:48)
--- NOTE | 2023-10-20 05:10 | HP.PCM.OB_ITS ---
HPI - General General Date of Admission: 10/19/23 HPI Narrative FALLON KRAFT, is a 27 F who presents IAL regular ctx now 6 cm Maternal Data Information MICHEL Calculator Estimated Delivery Date Method Current WG Current Estimate 10/20/23 LMP (Certain) 40w 0d PFSH PFSH Medical History (Updated 10/20/23 @ 05:[address] Concepcion Oleary MD) Active labor at term Anxiety Asthma Bilateral headaches Depression GERD (gastroesophageal reflux disease) History of fracture of patella Home Medications vit,calcium no.40-iron fum 27 mg iron-folate no.1 1 mg tablet (PNV- Select) 1 tab PO .q8hr PRN nausea 03/15/23 [History Last Taken 10/19/23] Allergy/AdvReac Type Severity Reaction Status Date / Time amoxicillin Allergy Mild Vomiting Verified 10/19/23 20:47 bupropion [From Wellbutrin] Allergy Hives Verified 10/19/23 20:47 Family History Other High blood cholesterol Hypertension Myocardial infarction Surgical History bilateral knee surgery History of wisdom tooth extraction, class II edentulism Social History household members: spouse housing: house current occupational status: student current occupation: Physical Therapist pets and animals: Yes (1 cat - not managing litter box) history of recent travel: No sexually active: Yes Smoking Status: Never smoker alcohol intake: current details: occasionally - not while substance use type: does not use caffeine: Yes what type of physical activity do you participate in: none seatbelt use: always do you feel safe at home: Yes additional social history: - Matt History 1 Elective abortions Hx Para 0 Spontaneous abortions Hx # Term Pregnancies Ectopic pregnancies Hx # Pregnancies Multiple births # of living children Visit Details Expected Delivery Route/Plan Labor Preferences- CB/BF classes: yes labor support person: petr Strickland labor intervention preferences: pain management options preferred: epidural, nitrous first cut cord/dad catch: yes cord only : yes PP control planned: discussed possible routes of delivery and associated risks: [] special requests: [] Plans Covid status: Flu vaccine: given Tdap vaccine:given Rhogam: na LARC form signed: declined movement and labor precautions reviewed. Problem list reviewed and updated with the most current plan of care details and appropriate orders placed. Relevant counseling for the gestational age provided. Continue routine care and follow up unless otherwise noted in visit notes/problem list details OB Flowsheet Initial Weight: 148 lb Date -?-?-?-?-?-?-?-?-?-?-?-?- EGA Weight BP Urine Prot -?-?-?-?-?-?-?-?-?-?-?-?- Glucose FHR FuHt Pres Dilation -?-?-?-?-?-?-?-?-?-?-?-?- Effaced St Visit Note 03/15/23 -?-?-?-?-?-?-?-?-?-?-?-?- 8w 5d 148 lb 2 oz (+2 oz) 119/71 -?-?-?-?-?-?-?-?-?-?-?-?- 171 -?-?-?-?-?-?-?-?-?-?-?-?- LC- CRL 2mm con with LMP. MICHEL 10/20/2023. desires nipt/carrier 04/11/23 -?-?-?-?-?-?-?-?-?-?-?-?- 12w 4d 144 lb (-4 lb) 108/71 Negative -?-?-?-?-?-?-?-?-?-?-?-?- Negative -?-?-?-?-?-?-?-?-?-?-?-?- KW-no vb/crampin g. NIPT LR. Anatomy US ordered. Discussed AFP. FHR visualized on handheld doppler 05/10/23 -?-?-?-?-?-?-?-?-?-?-?-?- 16w 5d 148 lb 2 oz (+2 oz) 125/72 Negative -?-?-?-?-?-?-?-?-?-?-?-?- Negative 145 -?-?-?-?-?-?-?-?-?-?-?-?- kw-no vb/crampin g. Anatomy US on 06/01. CB classed discussed. AFP ordered. 05/23/23 -?-?-?-?-?-?-?-?-?-?-?-?- 18w 4d 152 lb 2 oz (+4 lb 2 oz) 112/72 Negative -?-?-?-?-?-?-?-?-?-?-?-?- Negative 145 -?-?-?-?-?-?-?-?-?-?-?-?- KW-follow up fro m ER visit for bleeding. no further bleeding episodes. no concerns today 06/01/23 -?-?-?-?-?-?-?-?-?-?-?-?- 19w 6d 154 lb 4 oz (+6 lb 4 oz) 118/64 Negative -?-?-?-?-?-?-?-?-?-?-?-?- Negative 161 -?-?-?-?-?-?-?-?-?-?-?-?- MH-No VB since p rior to last visit. Doing well at this time. MFM US today 07/03/23 -?-?-?-?-?-?-?-?-?-?-?-?- 24w 3d 157 lb 2 oz (+9 lb 2 oz) 111/73 Negative -?-?-?-?-?-?-?-?-?-?-?-?- Negative 150 -?-?-?-?-?-?-?-?-?-?-?-?- JV- normal anato my, no lof, vaginal bleeding, or cramping. anterior placenta, boy! Moises 08/07/23 -?-?-?-?-?-?-?-?-?-?-?-?- 29w 3d 165 lb (+17 lb) 110/72 -?-?-?-?-?-?-?-?-?-?-?-?- 150 -?-?-?-?-?-?-?-?-?-?-?-?- Sm- no vb lof go od fm no regular ctx 08/25/23 -?-?-?-?-?-?-?-?-?-?-?-?- 32w 0d 167 lb (+19 lb) 114/74 Negative -?-?-?-?-?-?-?-?-?-?-?-?- Negative 140 32 -?-?-?-?-?-?-?-?-?-?-?-?- KW-no vb/lof/ctx . good fm. LARC done 09/08/23 -?--?-?-?-?-?-?-?-?-?-?-?- 34w 0d 170 lb (+22 lb) 131/73 Negative -?-?-?-?-?-?-?-?-?-?-?-?- Negative 140 34 -?-?-?-?-?-?-?-?-?-?-?-?- Sm- no vb lof go od fm no regular ctx 09/22/23 -?-?-?-?-?-?-?-?-?-?-?-?- 36w 0d 172 lb (+24 lb) 116/68 Negative -?-?-?-?-?-?-?-?-?-?--?-?- Negative 130 36 Cephalic 2 -?-?-?-?-?-?-?-?-?-?-?-?- 70 40 -3 SM- no vb lof go od fm no regular ctx gbs today 09/28/23 -?-?-?-?-?-?-?-?-?-?-?-?- 36w 6d 171 lb (+23 lb) 123/71 -?-?-?-?-?-?-?-?-?-?-?-?- 135 37 Cephalic 3 -?-?-?-?-?-?-?-?-?-?-?-?- 70 -2 SM- no vb lof good fm no reuglar ctx 10/06/23 -?-?-?-?-?-?-?-?-?-?-?-?- 38w 0d 171 lb 8 oz (+23 lb 8 oz) 120/72 Negative -?-?-?-?-?-?-?-?-?-?-?-?- Negative 135 37 Cephalic 4 -?-?-?-?-?-?-?-?-?-?-?-?- 80 -2 KW- no vb/ lof/reg ctx. good fm. labor precautions. had increased discharge yesterday. Rom+ sent. wants membrane sweep next week. 10/12/23 -?-?-?-?-?-?-?-?-?-?-?-?- 38w 6d 173 lb (+25 lb) 124/88 Negative -?-?-?-?-?-?-?-?-?-?-?-?- Negative 140 37 Cephalic 4 .5 -?-?-?-?-?-?-?-?-?-?-?-?- 80 -2 JV- no lof , vaginal bleeding, or dec fm. cx still a little posterior. 10/19/23 -?-?--?-?-?-?-?-?-?-?-?-?- 39w 6d 178 lb (+30 lb) 127/76 Negative -?-?-?-?-?-?-?-?-?-?-?-?- Negative 140 39 Cephalic 5 -?-?-?-?-?-?-?-?-?-?--?-?- 80 -2 KW- no vb/ lof/ regular ctx. good fm. IOL set up for monday. membrane sweep NST FHR Rate Baby A Baseline: 140 Variability:: Moderate Accelerations:: 15 x 15 Decelerations:: None NST Reactive:: Yes FHR Category:: Category I Uterine Activity:: q3-5 ROS Constitutional Constitutional: Reports systems reviewed and no addt'l complaints, except as documented ENT HEENT: Reports systems reviewed and no addt'l complaints, except as documented Cardiovascular Cardiovascular: Reports systems reviewed and no addt'l complaints, except as documented Respiratory/Chest Respiratory/Chest: Reports systems reviewed and no addt'l complaints, except as documented Gastrointestinal Gastrointestinal: Reports systems reviewed and no addt'l complaints, except as documented and nausea; Denies abdominal pain Genitourinary Genitourinary: Reports systems reviewed and no addt'l complaints, except as documented, contractions Details: present and frequency (regular ) and movement Details: present Musculoskeletal Musculoskeletal: Reports systems reviewed and no addt'l complaints, except as documented Integumentary Integumentary: Reports as per HPI Neurologic Neurologic: Reports systems reviewed and no addt'l complaints, except as documented Endocrine Endocrinology: Reports systems reviewed and no addt'l complaints, except as documented Vital Signs Vital Signs Vital Signs: 10/19/23 20:54 10/19/23 20:54 10/19/23 20:54 Temperature Temperature Source Pulse Rate 98 Respiratory Rate Blood Pressure 132/83 H BP Systolic 132 BP Diastolic 83 Pulse Ox 98 10/19/23 23:12 10/19/23 23:12 10/20/23 00:33 Temperature Temperature Source Pulse Rate 84 Respiratory Rate Blood Pressure 137/75 H 124/80 H BP Systolic 137 124 BP Diastolic 75 80 Pulse Ox 10/20/23 00:33 10/20/23 00:33 10/20/23 00:33 Temperature Temperature Source Temporal Pulse Rate 79 Respiratory Rate Blood Pressure BP Systolic BP Diastolic Pulse Ox 97 10/20/23 00:33 10/20/23 00:33 10/20/23 00:38 Temperature 98.7 F Temperature Source Pulse Rate 76 Respiratory Rate 16 Blood Pressure BP Systolic BP Diastolic Pulse Ox 10/20/23 00:38 10/20/23 00:43 10/20/23 00:43 Temperature Temperature Source Pulse Rate 76 Respiratory Rate Blood Pressure BP Systolic BP Diastolic Pulse Ox 99 96 10/20/23 00:48 10/20/23 00:48 10/20/23 00:53 Temperature Temperature Source Pulse Rate 77 84 Respiratory Rate Blood Pressure BP Systolic BP Diastolic Pulse Ox 99 10/20/23 00:53 10/20/23 00:58 10/20/23 00:58 Temperature Temperature Source Pulse Rate 86 Respiratory Rate Blood Pressure BP Systolic BP Diastolic Pulse Ox 99 100 10/20/23 01:03 10/20/23 01:03 10/20/23 01:08 Temperature Temperature Source Pulse Rate 79 83 Respiratory Rate Blood Pressure BP Systolic BP Diastolic Pulse Ox 99 10/20/23 01:08 10/20/23 01:13 10/20/23 01:13 Temperature Temperature Source Pulse Rate 80 Respiratory Rate Blood Pressure 129/67 H BP Systolic 129 BP Diastolic 67 Pulse Ox 100 10/20/23 01:13 10/20/23 01:10 10/20/23 01:05 Temperature Temperature Source Pulse Rate 88 Respiratory Rate 16 16 Blood Pressure BP Systolic BP Diastolic Pulse Ox 10/20/23 01:13 10/20/23 01:18 10/20/23 01:18 Temperature Temperature Source Pulse Rate 77 Respiratory Rate Blood Pressure 129/71 H BP Systolic 129 BP Diastolic 71 Pulse Ox 99 10/20/23 01:15 10/20/23 01:18 10/20/23 01:18 Temperature Temperature Source Pulse Rate 89 Respiratory Rate 16 Blood Pressure BP Systolic BP Diastolic Pulse Ox 100 10/20/23 01:20 10/20/23 01:24 10/20/23 01:24 Temperature Temperature Source Pulse Rate 74 Respiratory Rate 16 Blood Pressure 122/64 H BP Systolic 122 BP Diastolic 64 Pulse Ox 10/20/23 01:23 10/20/23 01:23 10/20/23 01:25 Temperature Temperature Source Pulse Rate 79 Respiratory Rate 16 Blood Pressure BP Systolic BP Diastolic Pulse Ox 99 10/20/23 01:28 10/20/23 01:28 10/20/23 01:28 Temperature Temperature Source Pulse Rate 72 Respiratory Rate Blood Pressure 125/72 H BP Systolic 125 BP Diastolic 72 Pulse Ox 99 10/20/23 01:30 10/20/23 01:33 10/20/23 01:33 Temperature Temperature Source Pulse Rate 79 Respiratory Rate 14 Blood Pressure BP Systolic BP Diastolic Pulse Ox 99 10/20/23 01:34 10/20/23 01:34 10/20/23 02:05 Temperature Temperature Source Pulse Rate 76 Respiratory Rate Blood Pressure 121/66 H 119/70 BP Systolic 121 119 BP Diastolic 66 70 Pulse Ox 10/20/23 02:05 10/20/23 02:23 10/20/23 02:23 Temperature Temperature Source Temporal Pulse Rate 73 72 Respiratory Rate Blood Pressure BP Systolic BP Diastolic Pulse Ox 10/20/23 02:23 10/20/23 02:23 10/20/23 02:23 Temperature 97.9 F Temperature Source Pulse Rate Respiratory Rate 16 Blood Pressure BP Systolic BP Diastolic Pulse Ox 98 10/20/23 03:27 10/20/23 03:27 10/20/23 03:27 Temperature Temperature Source Temporal Pulse Rate 73 Respiratory Rate Blood Pressure 117/58 L BP Systolic 117 BP Diastolic 58 Pulse Ox 10/20/23 03:27 10/20/23 03:27 10/20/23 03:27 Temperature Temperature Source Pulse Rate 69 Respiratory Rate 16 Blood Pressure BP Systolic BP Diastolic Pulse Ox 97 10/20/23 03:27 10/20/23 04:41 10/20/23 04:41 Temperature 97.4 F L Temperature Source Core Pulse Rate Respiratory Rate Blood Pressure 122/73 H BP Systolic 122 BP Diastolic 73 Pulse Ox 10/20/23 04:41 10/20/23 04:41 10/20/23 04:41 Temperature 97.1 F L Temperature Source Pulse Rate 82 Respiratory Rate 16 Blood Pressure BP Systolic BP Diastolic Pulse Ox Weight Weight: 173 lb 9.6 oz Body Mass Index (BMI) 28.0 Physical Exam Const alert, oriented x3 and healthy appearing Constitutional Narrative: uncomfortable with contractions HEENT normocephalic and moist oral mucous membranes Head and Scalp: atraumatic Neck full ROM, no lymphadenopathy, supple and thyroid normal General: trachea midline Thyroid: thyroid normal Lymph Lymphatic: no lymphadenopathy noted Chest inspection of chest normal Resp normal respiratory effort Cardio regular rate GI normal to inspection, nondistended, normoactive bowel sounds, soft to palpation and non-tender Inspection: gravid external exam normal Bimanual Exam - Vag & Uterus: uterus non-tender Manual OB Exam: estimated gestational size appropriate, presentation cephalic, dilated, effaced and station Extremity normal to inspection General Extremity: Negative for edema Skin no rashes or lesions noted Neuro deep tendon reflexes 2+ bilaterally Motor Exam: strength 5/5 throughout and clonus absent Psych mental status grossly normal Labs Labs Labs: Blood Type A POSITIVE Antibody Screen NEGATIVE Hct 30.9 % (37-47) L Hgb 10.2 g/dL (12.0-15.0) L Obstetrics Ultrasound Syphilis Total Ab Non-reactive Rubella IgG Antibody Reactive (Nonreactive) Hep Bs Antigen Non-Reactive (Nonreactive) Hepatitis C Antibody Non-Reactive (Nonreactive) Chlamydia DNA ([place]) Negative (Negative) N.gonorrhoeae DNA ([place]) Negative (Negative) HIV 1&2 Antibody Non-Reactive (Nonreactive) Glucose 1 Hr 50 gm 129 mg/dL (70-140) Miscellaneous Test Assessment & Plan (1) Asthma: QUALIFIERS: Asthma severity: unspecified severity Asthma persistence: unspecified Asthma complication type: unspecified Qualified Code(s): J45.909 - Unspecified asthma, uncomplicated COMMENT: albuterol PRN (2) Thoracic neuritis: COMMENT: avoid estrogen-hx of CVA type symptoms (3) : QUALIFIERS: Weeks of gestation: 39 weeks Qualified Code(s): Z3A.39 - 39 weeks gestation of COMMENT: GBS neg, NIPT low risk/carrier screening neg. , neg AFP, anatomy nl (4) Supervision of high-risk : QUALIFIERS: Trimester: second trimester Qualified Code(s): O09.92 - Supervision of high risk , unspecified, second trimester COMMENT: [id number] EDD10/20/2023 demetrius ayala : matt. PLAN: Plan Patient presents IAL, plan expectant management for , pitocin/AROM PRN if ne eded. Pain management: plans epidural. GBS neg. Management of any complications: none I have reviewed the [facility] and made any clinically relevant updates.
--- NOTE | 2023-10-20 06:28 | EX.PCM.OBRPT ---
Maternal Data Information MICHEL Calculator Estimated Delivery Date Method Current Current Estimate 10/20/23 LMP (Certain) 40w 0d Vaginal Delivery Operative Information Pre-Operative Diagnosis: see a/p diagnoses Post-Operative Diagnosis: same Surgery / Procedure Performed: Spontaneous Vaginal Delivery Type of Anesthesia: Epidural Special Medications: none Estimated Blood Loss: 200 Fluids Replaced: crystalloid Findings Description of Procedure: Patient began pushing and delivered the head in the HUGO presentation. The head was delivered atraumatically and a loose nuchal cord ?1 was identified and the delivered through without complication. The anterior and posterior shoulders delivered without complication followed by the rest of the and the was placed on the maternal abdomen. Delayed cord clamping was employed for approximately 60 seconds. Cord was clamped and cut and gentle traction was applied to the cord and the placenta delivered spontaneously immediately following it was noted to be intact with three-vessel cord. The perineum and vagina were inspected and noted to have a second degree perineal laceration which was repaired in the usual fashion with 3-0 vicryl rapide. . EBL was 300 mild atony treated with methergine. Patient and infant tolerated delivery well. Amniotic Fluid Description: Clear Placental Delivery Description: Spontaneous Placenta Disposition: [facility] Cord Vessel Description: 3 Vessels Cord Entanglement: None Delayed Cord Clamping: Yes Post Vaginal Delivery Medications Given After Delivery: IV Pitocin Episiotomy Description: None Complication Complications: None Procedures Urinary/Genital [id number]: [id number] Vaginal Delivery [facility]
--- NOTE | 2023-10-20 06:30 | DCINST_ITS ---
Discharge Instructions Diet Discharge Diet: No restrictions Activity Discharge Activity: Return to Normal Activity, May Not Drive (while taking narcotic pain medications.) and May Shower May resume sexual activity in: 4-6 weeks Dressing / Incision Call your doctor if your incision/area has: Continuous Slow Oozing, Sudden Increased Bleeding, Increased Pain/ Swelling, Increased Redness and Foul Smelling Discharge Follow Up Care Please Follow Up With: Concepcion Oleary MD When: Call [phone] to make an appointment with your doctor in 6 weeks. If you had elevated blood pressure or 4th degree laceration, you will need to be seen in 2 weeks. Test Results: Test results from this visit will be discussed in further detail at your follow- up appointment, if applicable. Discharge Plan Admission Admit Date/Time: 10/19/23 23:18 Attending Provider: Concepcion Oleary Primary Care Provider: Concha Faulkner Discharge Orders/Prescriptions Prescriptions: No Action PNV-Select 27-1 mg tablet 1 tab PO .q8hr PRN (Reason: nausea) Referrals / Follow Up: Concha Faulkner MD [Primary Care Provider] - Disposition Disposition (needs filled in before D/C Order can be placed): Home, Self Care
[2023-10-20] MEDS: Oxytocin 15 Units/NS 250ml 15 UNITS/250 ML IV.SOLN 83 UNITS IV (06:55)
[2023-10-20] MEDS: Methylergonovine 0.2 MG/ML Ampul IM (07:15)
[2023-10-20] MEDS: 0.9% Saline Lock 10 ML Syringe IV (07:42)
[2023-10-20] MEDS: Acetaminophen 500 MG Tablet 1000 MG PO ×2 (11:05→20:43)
--- NOTE | 2023-10-20 13:50 | CASEMGMT ---
Social Work Social Work Brief Assessment Labor and Delivery Unit Patient Address: [address] [place] [address] [place] [address] Phone number: [phone] Date of Referral/Notification: October 20, 2023 Referred By: Richa: Richa Cazares CNM Date of Intervention: October 20, 2023 Time of Intervention: 1350 Reason for Referral: maternal history of anxiety and depression Informant: Medical record and mother of baby (MOB) Radha Bravo; father baby (FOB) Marco A Bravo and then MOB's mother present for part of conversation History: MOB is a 27-year-old female, to the FOB, together for the last 7 years. MOB is 1, para 0 to 1 after delivering baby boy Moises on 10.20.2023. care was good starting at eight weeks gestation. 's 8 and 8 at one and five minutes of life respectively. 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 FOB works for [employer]. Maternal history of depression anxiety with a history of both counseling and medication. MOB reports history of some suicidal ideations as a teenager, but nothing as an adult. Both parents deny any substance use history. Spoke with MOB privately and MOB denies any type of domestic violence in the home. Assessment: met with MOB, FOB, and MOB's mother. MOB relaxed and talkative with family present. Family presents as supportive and engaged with the MOB and infant. Family denies any concerns with housing, transportation, or baby supplies. MELA is off of work for four weeks to help with the transition home. Additional support from other family members including the MOB his mother. Educated to mood and anxiety disorders, risk factors for such, and including that fathers can be at risk for said complications. MOB reports to be opened both counseling and medication if needed. Parents receptive to referral to the [facility] nurse visit program, just for some added support. MOB reports to feel better now that has decided to bottlefeed, and has noticed a reduction in anxiety with the ability to enjoy the baby more. Provided resources on mood and anxiety disorders including local supports show the parents need any additional referrals in the future. MOB with good eye contact, spontaneous conversation, appropriate affect, and receptivity to discussion. No observed concerns regarding parent-child interactions or bonding. No voiced concerns by nursing staff. Plan: will discharge home with parents when ready. [facility] nurse visit referral to be made. Resources on mood and anxiety disorders provided. No further needs requested or indicated. -SUNDEEP Haque, TUBULAR [employer] FORMER *This note was generated with [employer] software. It may contain incorrect words, spelling, and punctuation that were not noted in review of the chart prior to signing*
[2023-10-20] MEDS: Naproxen 500 MG Tablet PO (16:59)
[2023-10-21] VITALS: BP 119/73; PULSE 71; RESP 16; TEMP 36.7; O2SAT 99
[2023-10-21 04:00] VITALS: BP 103/70; PULSE 71; RESP 16; TEMP 36.5; O2SAT 99
--- NOTE | 2023-10-21 07:51 | PCM.PN.OB ---
Subjective Subjective Patient doing well without complaints. Tolerating PO. Ambulating and voiding without difficulty. Feeding well. Denies chest pain, shortness of breath, calf pain/swelling, fevers, chills, lightheadedness. Objective Data Objective Data Vital Signs: Vital Signs Temp Pulse Resp BP Pulse Ox O2 Del Method 97.7 F L 71 16 103/70 99 Room Air 10/21/23 04:00 10/21/23 04:00 10/21/23 04:00 10/21/23 04:00 10/21/23 04:00 10/21/23 04:00 Oxygen Delivery Method Room Air Weight: 173 lb 9.6 oz Body Mass Index (BMI) 28.0 Intake & Output: Intake and Output for Last 24 Hours 10/19/23 10/20/23 10/21/23 23:59 23:59 23:59 Intake Total 2069 / 2069 Output Total 2950 / 2950 Balance -880 / -880 Lab / Micro Data 10/19/23 23:35 Physical Exam Const alert and oriented x3 Lymph Lymphatic: no lymphadenopathy noted Chest inspection of chest normal and palpation of chest normal Resp normal respiratory effort and normal air movement Cardio regular rate and regular rhythm GI normal to inspection, nondistended, normoactive bowel sounds Uterus Palpation: uterus fundus firm Extremity normal to inspection and full ROM Skin no rashes or lesions noted Psych mental status grossly normal Assessment & Plan (1) Vaginal delivery: COMMENT: SM IAL 40 boy Moises PLAN: s/p PPD # 1 1. routine post delivery care 2. breast feeding- support given 3. rh positive 4. rubella immune 5. plans on d/c home tomorrow for additional education/support
[2023-10-21 09:00] VITALS: BP 127/83; PULSE 93; RESP 18; TEMP 36.7; O2SAT 99
[2023-10-21] MEDS: Naproxen 500 MG Tablet PO (09:32)
[2023-10-21] MEDS: Senna/Docusate Sodium 1 Tablet PO (10:51)
[2023-10-21 13:15] VITALS: BP 121/78; PULSE 86; RESP 16; TEMP 36.2; O2SAT 97
[2023-10-21 20:00] VITALS: BP 129/79; PULSE 106; RESP 16; TEMP 36.5; O2SAT 98
[2023-10-22 01:21] VITALS: BP 117/74; PULSE 91; RESP 16; TEMP 36.6; O2SAT 96
[2023-10-22 08:10] VITALS: BP 118/75; PULSE 95; RESP 14; TEMP 36.3; O2SAT 98
[2023-10-22] MEDS: Naproxen 500 MG Tablet PO (08:19)
--- NOTE | 2023-10-22 10:05 | PCM.PN.OB ---
Subjective Subjective Patient doing well without complaints. Tolerating PO. Ambulating and voiding without difficulty. Feeding well. Denies chest pain, shortness of breath, calf pain/swelling, fevers, chills, lightheadedness. Objective Data Objective Data Vital Signs: Vital Signs Temp Pulse Resp BP Pulse Ox O2 Del Method 97.3 F L 95 14 118/75 98 Room Air 10/22/23 08:10 10/22/23 08:10 10/22/23 08:10 10/22/23 08:10 10/22/23 08:10 10/22/23 08:10 Oxygen Delivery Method Room Air Weight: 173 lb 9.6 oz Body Mass Index (BMI) 28.0 Intake & Output: Intake and Output for Last 24 Hours 10/20/23 10/21/23 10/22/23 23:59 23:59 23:59 Intake Total 2069 / 2069 Output Total 2950 / 2950 Balance -880 / -880 Lab / Micro Data 10/19/23 23:35 Physical Exam Const alert and oriented x3 Lymph Lymphatic: no lymphadenopathy noted Chest inspection of chest normal Resp normal respiratory effort and normal air movement Cardio regular rate and regular rhythm GI normal to inspection, nondistended, normoactive bowel sounds Uterus Palpation: uterus fundus firm Assessment & Plan (1) Vaginal delivery: COMMENT: SM IAL 40 boy Moises (2) Thoracic neuritis: COMMENT: avoid estrogen-hx of CVA type symptoms PLAN: Plan s/p PPD # 2 1. routine post delivery care 2. breast feeding- support given 3. rh positive 4. rubella immune 5. d/c home today
--- NOTE | 2023-10-22 10:17 | DS.PCM_ITS ---
Providers Date of Admission: 10/19/23 Primary Care Physician: Dr. Concha Faulkner MD Reason For Visit: MATERNITY/VAGINAL DELIVERY Diagnosis Discharge Diagnosis (1) Vaginal delivery: Status: Acute Code(s): O80 - Encounter for full-term uncomplicated delivery (2) Thoracic neuritis: Status: Acute Code(s): M54.14 - Radiculopathy, thoracic region Plan s/p PPD # 2 1. routine post delivery care 2. breast feeding- support given 3. rh positive 4. rubella immune 5. d/c home today Medications at Discharge Home Medications vit,calcium no.40-iron fum 27 mg iron-folate no.1 1 mg tablet (PNV- Select) 1 tab PO .q8hr PRN nausea 03/15/23 Hospital Course Operations None Procedures None Summary of Care Provided Hospital Course: with vaginal delivery, uncomplicated. Physical Exam Const alert and oriented x3 Lymph Lymphatic: no lymphadenopathy noted Chest inspection of chest normal Resp normal respiratory effort and normal air movement Cardio regular rate and regular rhythm GI normal to inspection, nondistended, normoactive bowel sounds Uterus Palpation: uterus fundus firm Weight / BMI Weight Weight: 173 lb 9.6 oz Body Mass Index (BMI) 28.0 ABG / Lab / Microbiology Data 10/19/23 23:35 D/C Instructions Discharge Diet: No restrictions May resume sexual activity in: 4-6 weeks Call your doctor if your incision/area has: Continuous Slow Oozing, Sudden Increased Bleeding, Increased Pain/ Swelling, Increased Redness and Foul Smelling Discharge Please Follow Up With: Concepcion Oleary MD When: Call [phone] to make an appointment with your doctor in 6 weeks. If you had elevated blood pressure or 4th degree laceration, you will need to be seen in 2 weeks. Meaningful Use Info Meaningful Use Meaningful Use Diagnoses (Choose all that apply): None applicable Ischemic Stroke Statin Dosing Therapy Reference: STATIN DOSE THERAPY REFERENCE: * Patients > 75 years receive moderate or high dose statin therapy. * Patients 75 years or YOUNGER should receive HIGH intensity statin dose unless contraindicated. You will be required to document reason for non-treatment if statin daily dose does not meet guidelines. HIGH DOSE STATIN THERAPY DAILY Atorvastatin > than or = to 40 mg Rosuvastatin > than or = to 20 mg Amlodipine + Atorvastatin > than or = to 2.5/40 mg Ezetimibe + Simvastatin 10/80 mg Simvastatin 80mg Discharge Plan Admission Admit Date/Time: 10/19/23 23:18 Attending Provider: Concepcion Oleary Primary Care Provider: Concha Faulkner Discharge Orders/Prescriptions Prescriptions: No Action PNV-Select 27-1 mg tablet 1 tab PO .q8hr PRN (Reason: nausea) Referrals / Follow Up: Concha Faulkner MD [Primary Care Provider] - Disposition Disposition (needs filled in before D/C Order can be placed): Home, Self Care
--- NOTE | 2023-10-27 18:56 | CASEMGMT ---
Social Work? As per verbal permission by the mother of baby (MOB), at time of social work assessment, this machine sign writer faxed nurse visit referral form to the [facility] at [phone].? -HAMMAD Haque, HACKLER [employer]IG[employer] *This note was generated with buildabrandation software. It may contain incorrect words, spelling, and punctuation that were not noted in review of the chart prior to signing*
== END 2023-10-22 10:40 | disposition home or self-care (01) | DRG 807 ==
LOC: WPOUT 23:19 → WP 23:19
PROVIDERS: Admitting Provider Obstetrics & Gynecology; PCP Internal Medicine; Referring Provider Obstetrics & Gynecology; Visit Provider Obstetrics & Gynecology
DX: O99.52 Diseases of the respiratory system complicating childbirth (principal); Z37.0 Single live birth; J45.909 Unspecified asthma, uncomplicated; O75.89 Other specified complications of labor and delivery; O69.81X0 Labor and delivery complicated by cord around neck, without compression, not applicable or unspecified; O70.1 Second degree perineal laceration during delivery; Z3A.39 39 weeks gestation of pregnancy
CPT/HCPCS: 59025; 59050; 76815; 85025; 86780; 86850; 86900; 86901; 99221; J7120; A4216; G0378; J2405

== ENCOUNTER → 2025-03-24 | Outpatient (CLI) | payer OTHER, SELFPAY | END | disposition home or self-care (01) | LOC: LABSPEC 16:26 | PROVIDERS: PCP Internal Medicine; Referring Provider Obstetrics & Gynecology; Visit Provider Obstetrics & Gynecology | DX: Z12.4 Encounter for screening for malignant neoplasm of cervix (principal) | CPT/HCPCS: 88175; G0145 ==